=== PATIENT | male | born 1950 | race Caucasian/White ===

== ENCOUNTER 2018-07-22 14:40 | Inpatient (IN) | payer MEDICARE, BC ==
[~2018-07-22] VITALS: Ht 167.6 cm; Wt 56.8 kg
[2018-07-22] MEDS ORDERED: morphine 4 MG/ML VIAL IV STA ×2 (15:25→21:35)
[2018-07-22] MEDS ORDERED: ONDANSETRON 4 MG INJ IV STA (15:25)
[2018-07-22] MEDS ORDERED: SOD CHLORIDE 0.9% 1,000 ML IV STA (15:25)
--- NOTE | 2018-07-22 15:34 | ERD ---
ER Documentation Chief Complaint Chief Complaint AP SEND BY DR PICHARDO HPI 68-year-old male presenting with right-sided abdominal pain that started this morning. He went to his primary care doctor and was sent here for evaluation. He had associated nonbloody and nonbilious vomiting multiple times. The pain is constant, 8 out of 10, aching, nonradiating, with no alleviating or exacerbating factors. He is having normal bowel movements with no hematochezia or melena. Denies fevers or chills. No chest pain or shortness of breath. ROS All systems reviewed and are negative except as per history of present illness. Medications Home Meds Reported Medications Amlodipine Besylate* (Norvasc*) 5 Mg Tablet, 5 MG PO DAILY, TAB 07/22/18 Clopidogrel Bisulfate (Clopidogrel) 75 Mg Tablet, 75 MG PO DAILY, #30 TAB 07/22/18 Metoprolol Succinate* (Toprol XL*) 25 Mg Tab.sr.24h, 25 MG PO DAILY, #30 TAB 07/22/18 Allergies Allergies: Coded Allergies: No Known Allergy (Unverified , 07/22/18) PMhx/Soc History of Surgery: Yes (Left femoral stents) Hx Cardiac Disorders: Yes (Peripheral artery disease, hypertension) Hx Alcohol Use: Yes Hx Substance Use: No Hx Tobacco Use: Yes Smoking Status: Current every day smoker FmHx Family History: No diabetes Physical Exam Vitals Vital Signs Date Temp Pulse Resp B/P (MAP) Pulse Ox O2 O2 Flow FiO2 Time Delivery Rate 07/22/18 98.3 89 18 140/89 99 14:47 (106) Physical Exam Const: No acute distress, nontoxic Head: Atraumatic Eyes: Normal Conjunctiva ENT: Normal External Ears, Nose and Mouth. Neck: Full range of motion. No meningismus. Resp: Clear to auscultation bilaterally Cardio: Regular rate and rhythm, no murmurs. Nonpalpable left femoral, DP, and PT pulses. Unable to get Dopplers on DP and PT pulses. Right lower extremity with no palpable or dopplerable DP or PT pulses. Able to palpate a 2+ femoral pulse. Abd: Soft, right mid abdomen tender to deep palpation with no rebound or guarding. No pulsatile mass. Non distended. Normal bowel sounds Skin: No petechiae or rashes Back: No midline or flank tenderness Ext: No cyanosis, or edema. Feet with decreased cap refill but relatively warm to touch. Neur: Awake and alert, normal speech, no facial asymmetry, strength and sensations intact in all 4 extremities. Psych: Normal Mood and Affect Result Diagram: 07/22/18 1518 07/22/18 1518 Results 24 hrs Laboratory Tests Test 07/22/18 15:18 White Blood Count 15.9 10^3/ul Red Blood Count 5.69 10^6/ul Hemoglobin 17.1 g/dl Hematocrit 50.9 % Mean Corpuscular Volume 89.5 fl Mean Corpuscular Hemoglobin 30.1 pg Mean Corpuscular Hemoglobin Concent 33.6 g/dl Red Cell Distribution Width 13.2 % Platelet Count 228 10^3/UL Mean Platelet Volume 10.3 fl Immature Granulocytes % 0.300 % Neutrophils % 81.9 % Lymphocytes % 12.4 % Monocytes % 4.7 % Eosinophils % 0.2 % Basophils % 0.5 % Nucleated Red Blood Cells % 0.0 /100WBC Immature Granulocytes # 0.050 10^3/ul Neutrophils # 13.0 10^3/ul Lymphocytes # 2.0 10^3/ul Monocytes # 0.7 10^3/ul Eosinophils # 0.0 10^3/ul Basophils # 0.1 10^3/ul Nucleated Red Blood Cells # 0.0 10^3/ul Prothrombin Time 11.8 Sec Prothrombin Time Ratio 0.9 INR International Normalized Ratio 0.86 Activated Partial Thromboplast Time 26.9 Sec Urine Color YELLOW Urine Clarity CLEAR Urine pH 7.0 Urine Specific Henderson 1.015 Urine Ketones NEGATIVE mg/dL Urine Nitrite NEGATIVE mg/dL Urine Bilirubin NEGATIVE mg/dL Urine Urobilinogen NEGATIVE mg/dL Urine Leukocyte Esterase NEGATIVE Gilberto/ul Urine Microscopic RBC 0 /HPF Urine Microscopic WBC 1 /HPF Urine Hemoglobin NEGATIVE mg/dL Urine Glucose NEGATIVE mg/dL Urine Total Protein 1+ mg/dl Sodium Level 142 mmol/L Potassium Level 4.1 mmol/L Chloride Level 100 mmol/L Carbon Dioxide Level 33 mmol/L Anion Gap 9 Blood Urea Nitrogen 14 mg/dl Creatinine 0.86 mg/dl Est Glomerular Filtrat Rate mL/min > 60 mL/min Glucose Level 113 mg/dl Calcium Level 9.7 mg/dl Total Bilirubin 0.4 mg/dl Direct Bilirubin 0.00 mg/dl Indirect Bilirubin 0.4 mg/dl Aspartate Amino Transf (AST/SGOT) 33 IU/L Alanine Aminotransferase (ALT/SGPT) 22 IU/L Alkaline Phosphatase 102 IU/L Troponin I < 0.012 ng/ml Total Protein 8.3 g/dl Albumin 4.8 g/dl Globulin 3.50 g/dl Albumin/Globulin Ratio 1.37 Lipase 109 U/L Current Medications Medications Dose Sig/Mele Start Time Status Last (Trade) Ordered Route PRN Stop Time Admin Dose Reason Admin Sodium 1,000 ml @ Q1H STAT 07/22/18 DC 07/22/18 Chloride 1,000 mls/hr IV 15:25 07/22/18 15:41 16:24 Morphine 4 mg ONCE STAT 07/22/18 DC 07/22/18 Sulfate IV 15:25 07/22/18 15:42 (morphine) 15:27 Ondansetron 4 mg ONCE STAT 07/22/18 DC 07/22/18 HCl (Zofran IV 15:25 07/22/18 15:42 Inj) 15:27 IV Flush 10 ml STK-MED 07/22/18 DC (NS 10 ml) ONCE .ROUTE 16:07 07/22/18 16:08 Sodium 100 ml @ ud STK-MED 07/22/18 DC Chloride ONCE .ROUTE 16:07 07/22/18 16:08 Iohexol 150 ml STK-MED 07/22/18 DC (Omnipaque ONCE .ROUTE 16:07 07/22/18 300mg/ ml) 16:08 Ondansetron 4 mg BRIDGE ORDER 07/22/18 HCl (Zofran PRN IV 18:00 07/23/18 Inj) NAUSEA AND/OR 17:59 VOMITING 650 mg ER BRIDGE 07/22/18 Acetaminophen PRN PO MILD 18:00 07/23/18 (Tylenol PAIN(1-3)OR 17:59 Tab) ELEVATED TEMP Procedures/MDM EMERGENT LABS AND DIAGNOSTIC STUDIES: Lab Results above were reviewed and interpreted by me. CBC: Leukocytosis likely stress response versus infection CMP: No evidence of electrolyte abnormality, renal failure, hypoglycemia, liver failure, or biliary obstruction UA: no evidence of infection or hematuria 12-lead EKG was interpreted by Arpita Justin MD: Normal Sinus Rhythm with ventricular rate of 74 beats per minute Rightward axis Normal intervals Abnormal R wave progression No acute ST or T wave changes suggestive of acute ischemia or STEMI. Radiology Results as interpreted by Radiology below were reviewed by Navdeep Justin MD: Chest x-ray: IMPRESSION: 1. Mild central pulmonary vascular congestion. 2. Blunting of the left costophrenic angle, trace pleural effusion versus scarr ing. RPTAT: BBDD Physician Fred Date Time Electronically viewed and signed by Physician Fred on 07/22/2018 15:36 Ultrasound gallbladder: no acute abnormalities CT abdomen and pelvis with IV contrast: IMPRESSION: 1. Wedge-shaped area of decreased enhancement involving the lower pole of the right kidney is most consistent with a renal infarct probably from embolic phenomenon related to diffuse mural thrombus of the abdominal aorta. 2. Left common iliac through common femoral artery stent placement without enhancement of the stent lumen consistent with occlusion. Follow-up evaluation is recommended. 3. Ectasia of the infrarenal abdominal aorta without aneurysm or rupture, severe to use atherosclerotic calcification is present. 4. Equivocal gastritis pattern. 5. Results discussed by telephone with Dr. Justin at 17:04 Navi Eisenberg Physician Date Time Electronically viewed and signed by Physician Lluvia on 07/22/2018 17:05 Initial Nursing notes reviewed. Previous Medical Records requested via the Electronic Health Record. EMERGENCY DEPARTMENT COURSE / MEDICAL DECISION MAKIN-year-old male presenting with right-sided abdominal pain. Vitals are stable. No evidence of acute surgical abdomen. Imaging showed evidence of a right renal infarction, likely the cause of his pain. This is likely embolic in nature. He does have significant peripheral vascular disease with occlusion of his left lower extremity arterial stent. However there are no signs of critical limb ischemia on exam. Patient states that he has had intermittent pain in his left lower extremity but no numbness or weakness. Currently he denies any pain in his left lower extremity. I spoke with the vascular surgeon, Dr. Jarrell, who does not recommend any anticoagulation at this time. Patient will be admitted for further workup as the renal infarction is concerning for embolism and will require further workup to look for source. I will defer decision for anticoagulation to the inpatient team. Accepting Care Team: Current data and ongoing care discussed. Time: Time of admission Primary Provider: Dr. Pichardo Consulting: Dr. Luis Jarrell (Vascular Sx) Departure Diagnosis: Primary Impression: Kidney infarction Additional Impressions: Lower limb ischemia Stenosis of peripheral vascular stent, initial encounter Condition: Serious ALEXANDREA JUSTIN MD Jul 22, 2018 15:34
[2018-07-22] MEDS ORDERED: SOD CHLORIDE 0.9% 100 ML ONE (16:07)
[2018-07-22] MEDS ORDERED: IOHEXOL 300MG/ML 150 ML BTL ONE (16:07)
[2018-07-22] MEDS ORDERED: METO-335 PO (16:36)
[2018-07-22] MEDS ORDERED: AMLO5TAB4 PO (16:37)
[2018-07-22] MEDS ORDERED: CLOP75TA27 PO (16:37)
[2018-07-22] MEDS ORDERED: ACETAMINOPHEN 325 MG TAB PO PRN (18:00)
[2018-07-22] MEDS ORDERED: ONDANSETRON 4 MG INJ IV PRN (18:00)
[2018-07-22] MEDS ORDERED: LABETALOL HCL 20MG INJ IV ONE ×2 (18:30→20:30)
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
[2018-07-22] MEDS ORDERED: ACETAMINOPHEN 500 MG TAB PO PRN (21:00)
[2018-07-22 22:00] VITALS: BP 198/94; PULSE 64; RESP 20
[2018-07-22 22:12] VITALS: PULSE 62
[2018-07-22 22:17] VITALS: Ht 167.6 cm; Wt 56.8 kg
[2018-07-22] MEDS: ONDANSETRON 4 MG INJ IV SCH (22:43)
[2018-07-22] MEDS: PANTOPRAZOLE 40 MG INJ IV SCH (22:43)
[2018-07-22] MEDS: ALBUTEROL 0.083% (NEB) 2.5 MG/3 ML AMP HHN SCH (22:52)
[2018-07-22] MEDS: IPRATROPIUM (NEB) 0.5 MG/2.5 ML AMP HHN SCH (22:52)
[2018-07-22] MEDS ORDERED: ASPIRIN (EC) 325 MG TAB PO ONE (23:00)
[2018-07-22] MEDS: NICOTINE (14 MG/24 HR) PATCH TRANSDERM SCH (23:37)
[2018-07-22] MEDS: METOPROLOL 25 MG TAB PO SCH (23:38)
[2018-07-23] VITALS (15 sets, daily range): BP systolic 102–202; BP diastolic 52–87; PULSE 63–93; RESP 18–22
[2018-07-23] MEDS: AZITHROMYCIN 500MG/NS (PMX) 250 ML IVPB SCH ×2 (00:21→23:50)
[2018-07-23] MEDS ORDERED: CLONIDINE 0.2 MG/24 HR PATCH TRANSDERM SCH ×2 (00:45→01:00)
[2018-07-23] MEDS ORDERED: LABETALOL HCL 20MG INJ IV PRN (01:00)
[2018-07-23] MEDS ORDERED: NIFEdipine (XL) 60 MG TAB PO SCH (01:35)
[2018-07-23] MEDS ORDERED: ATORVASTATIN 20 MG TAB PO SCH ×2 (01:40→21:00)
[2018-07-23] MEDS ORDERED: NITROGLYCERIN 0.2 MG/HR PATCH TRANSDERM SCH ×2 (01:45→09:00)
[2018-07-23] MEDS: TAMSULOSIN (SR) 0.4 MG CAP PO SCH ×2 (01:50→20:25)
[2018-07-23] MEDS ORDERED: NITROGLYCERIN 2% 1 GM OINT PKT ONE (01:59)
[2018-07-23] MEDS ORDERED: CLONIDINE 0.1 MG/24 HR PATCH TRANSDERM SCH (03:00)
[2018-07-23] MEDS: PANTOPRAZOLE 40 MG INJ IV SCH (06:22)
[2018-07-23] MEDS: NICOTINE (14 MG/24 HR) PATCH TRANSDERM SCH (08:05)
[2018-07-23] MEDS: METOPROLOL 25 MG TAB PO SCH ×2 (08:06→20:25)
[2018-07-23] MEDS: ONDANSETRON 4 MG INJ IV SCH (08:08)
[2018-07-23] MEDS: IPRATROPIUM (NEB) 0.5 MG/2.5 ML AMP HHN SCH (08:28)
[2018-07-23] MEDS: ALBUTEROL 0.083% (NEB) 2.5 MG/3 ML AMP HHN SCH ×2 (08:28→16:00)
--- NOTE | 2018-07-23 08:46 | CONS ---
Date/Time of Note Date/Time of Note DATE: 07/23/18 TIME: 08:41 Assessment/Plan Assessment/Plan Assessment/Plan Consult dictated 1-Infarct of the right kidney with well preserved renal fx and BP control in the setting if severe peripheral vasc dz and abd ASHD of Aorta. Doubt assoc coagulopathy (pt and ptt are nl) but hematology comments would be welcomed, cards eval regarding unlikely mural thrombus as cause should be pursued and vascular eval as to whether abd aorta stenting or other would be helpful to prevent future events. Thank you Result Diagram: 07/23/1818 07/23/1817 Results 24hrs Laboratory Tests Test 07/22/18 15:00 07/22/18 15:18 07/23/18 05:17 07/23/18 05:18 Urine Color YELLOW YELLOW Urine Clarity CLEAR CLEAR Urine pH 6.0 7.0 Urine Specific [place] 1.032 H 1.015 Urine Ketones TRACE A NEGATIVE Urine Nitrite NEGATIVE NEGATIVE Urine Bilirubin NEGATIVE NEGATIVE Urine Urobilinogen NEGATIVE NEGATIVE Urine Leukocyte Esterase NEGATIVE NEGATIVE Urine Hemoglobin NEGATIVE NEGATIVE Urine Glucose NEGATIVE NEGATIVE Urine Total Protein NEGATIVE 1+ H White Blood Count 15.9 H 13.1 H Red Blood Count 5.69 4.82 Hemoglobin 17.1 14.6 Hematocrit 50.9 43.2 Mean Corpuscular Volume 89.5 89.6 Mean Corpuscular 30.1 30.3 Hemoglobin Mean Corpuscular 33.6 33.8 Hemoglobin Concent Red Cell Distribution 13.2 13.3 Width Platelet Count 228 196 Mean Platelet Volume 10.3 10.6 H Immature Granulocytes % 0.300 0.500 H Neutrophils % 81.9 H 78.5 H Lymphocytes % 12.4 L 14.1 L Monocytes % 4.7 6.1 Eosinophils % 0.2 0.3 Basophils % 0.5 0.5 Nucleated Red Blood 0.0 0.0 Cells % Immature Granulocytes # 0.050 H 0.060 H Neutrophils # 13.0 H 10.3 H Lymphocytes # 2.0 1.8 Monocytes # 0.7 0.8 Eosinophils # 0.0 0.0 Basophils # 0.1 0.1 Nucleated Red Blood 0.0 0.0 Cells # Prothrombin Time 11.8 L Prothrombin Time Ratio 0.9 INR International 0.86 Normalized Ratio Activated 26.9 Partial Thromboplast Time Urine Microscopic RBC 0 Urine Microscopic WBC 1 Sodium Level 142 141 Potassium Level 4.1 4.1 Chloride Level 100 100 Carbon Dioxide Level 33 H 32 H Anion Gap 9 9 Blood Urea Nitrogen 14 13 Creatinine 0.86 0.86 Est Glomerular Filtrat > 60 > 60 Rate mL/min Glucose Level 113 112 Calcium Level 9.7 8.9 Total Bilirubin 0.4 0.7 Direct Bilirubin 0.00 0.00 Indirect Bilirubin 0.4 0.7 Aspartate Amino 33 28 Transf (AST/SGOT) Alanine 22 21 Aminotransferase (ALT/SG PT) Alkaline Phosphatase 102 61 Troponin I < 0.012 0.021 Total Protein 8.3 H 6.1 # Albumin 4.8 3.6 # Globulin 3.50 H 2.50 Albumin/Globulin Ratio 1.37 1.44 Lipase 109 Magnesium Level 1.8 Carcinoembryonic Antigen 2.4 Thyroid Stimulating 0.612 Hormone (TSH) Consultation Date/Type/Reason Admit Date/Time July 22, 2018 Past Medical History Medical History: angina, congestive heart failure, coronary artery disease, GERD, high cholesterol, hypertension Medications Current Medications Ondansetron HCl (Zofran Inj) 4 mg BRIDGE ORDER PRN IV NAUSEA AND/OR VOMITING; Start 07/22/18 at 18:00; Stop 07/23/18 at 17:59 Acetaminophen (Tylenol Tab) 650 mg ER BRIDGE PRN PO MILD PAIN(1-3)OR ELEVATED TEMP; Start 07/22/18 at 18:00; Stop 07/23/18 at 17:59 Azithromycin 250 ml @ 250 mls/hr Q24H IVPB Last administered on 07/23/18at 00:21; Admin Dose 250 MLS/HR; Start 07/22/18 at 23:00 Albuterol (Proventil 0.083% (Neb)) 2.5 mg Q8H RESP THERAPY HHN Last administered on 07/22/18at 22:52; Admin Dose 2.5 MG; Start 07/22/18 at 21:20 Ipratropium [place] (Atrovent 0.02% (Neb)) 0.5 mg DAILY RESP THERAPY HHN Last administered on 07/22/18at 22:52; Admin Dose 0.5 MG; Start 07/22/18 at 22:00 Ondansetron HCl (Zofran Inj) 4 mg DAILY IV Last administered on 07/23/18at 08:08; Admin Dose 4 MG; Start 07/22/18 at 23:00 Pantoprazole (Protonix Iv) 40 mg DAILY@0600 IV Last administered on 07/23/18 06:22; Admin Dose 40 MG; Start 07/22/18 at 23:00 Nicotine (Nicoderm 14 Mg/ 24hr) 1 patch DAILY TRANSDERM Last administered on 07/23/18 08:05; Admin Dose 1 PATCH; Start 07/22/18 at 23:00 Acetaminophen (Tylenol Tab) 500 mg Q6H PRN PO PAIN LEVEL 4-6; Start 07/22/18 at 21:00 Metoprolol Tartrate (Lopressor) 25 mg BID PO Last administered on 07/23/18 08:06; Admin Dose 25 MG; Start 07/22/18 at 23:30 Labetalol HCl (Labetalol) 20 mg Q1HWA PRN IV ELEVATED SYSTOLIC BP Last administered on 07/23/18 01:51; Admin Dose 20 MG; Start 07/23/18 at 01:00 Hydralazine HCl (Apresoline) 25 mg TID NGT Last administered on 07/23/18 08:06; Admin Dose 25 MG; Start 07/23/18 at 01:40 Morphine Sulfate (morphine) 3 mg Q3HWA PRN IV SEVERE PAIN LEVEL 7-10; Start 07/23/18 at 01:00 Nifedipine (Procardia Xl) 60 mg BID PO Last administered on 07/23/18 01:50; Admin Dose 60 MG; Start 07/23/18 at 01:35 Atorvastatin Calcium (Lipitor) 20 mg DAILY@2100 PO Last administered on 07/23/18 01:57; Admin Dose 20 MG; Start 07/23/18 at 01:40 Tamsulosin HCl (Flomax) 0.4 mg HS PO Last administered on 07/23/18 01:50; Admin Dose 0.4 MG; Start 07/23/18 at 01:40 Clonidine HCl (Catapres-Tts 1 Patch) 1 patch Q7D TRANSDERM Last administered on 07/23/18at 03:37; Admin Dose 1 PATCH; Start 07/23/18 at 03:00 Nitroglycerin (Nitroglycerin 0.1 Mg/Hr) 1 patch DAILY TRANSDERM ; Start 07/23/18 at 09:00 Allergies: Coded Allergies: No Known Allergy (Unverified , 07/22/18) Social History Alcohol Use: rarely Smoking Status: Current every day smoker Drug Use: none Exam/Review of Systems Vital Signs Vitals Vital Signs Date Temp Pulse Resp B/P (MAP) Pulse Ox O2 O2 Flow FiO2 Time Delivery Rate 07/23/18 97.6 69 120/59 Room Air 07:32 (79) 07/23/18 20 94 04:16 07/23/18 2.0 01:51 Intake and Output 07/22/18 07/22/18 07/23/18 1515:00 23:00 07:00 IntakeIntake Total 300 ml OutputOutput Total 400 ml BalanceBalance -100 ml Medications Medications Current Medications Ondansetron HCl (Zofran Inj) 4 mg BRIDGE ORDER PRN IV NAUSEA AND/OR VOMITING; Start 07/22/18 at 18:00; Stop 07/23/18 at 17:59 Acetaminophen (Tylenol Tab) 650 mg ER BRIDGE PRN PO MILD PAIN(1-3)OR ELEVATED TEMP; Start 07/22/18 at 18:00; Stop 07/23/18 at 17:59 Azithromycin 250 ml @ 250 mls/hr Q24H IVPB Last administered on 07/23/18at 00:21; Admin Dose 250 MLS/HR; Start 07/22/18 at 23:00 Albuterol (Proventil 0.083% (Neb)) 2.5 mg Q8H RESP THERAPY HHN Last administered on 07/22/18at 22:52; Admin Dose 2.5 MG; Start 07/22/18 at 21:20 Ipratropium [place] (Atrovent 0.02% (Neb)) 0.5 mg DAILY RESP THERAPY HHN Last administered on 07/22/18at 22:52; Admin Dose 0.5 MG; Start 07/22/18 at 22:00 Ondansetron HCl (Zofran Inj) 4 mg DAILY IV Last administered on 07/23/18at 08:08; Admin Dose 4 MG; Start 07/22/18 at 23:00 Pantoprazole (Protonix Iv) 40 mg DAILY@0600 IV Last administered on 07/23/18at 06:22; Admin Dose 40 MG; Start 07/22/18 at 23:00 Nicotine (Nicoderm 14 Mg/ 24hr) 1 patch DAILY TRANSDERM Last administered on 07/23/18 08:05; Admin Dose 1 PATCH; Start 07/22/18 at 23:00 Acetaminophen (Tylenol Tab) 500 mg Q6H PRN PO PAIN LEVEL 4-6; Start 07/22/18 at 21:00 Metoprolol Tartrate (Lopressor) 25 mg BID PO Last administered on 07/23/18 08:06; Admin Dose 25 MG; Start 07/22/18 at 23:30 Labetalol HCl (Labetalol) 20 mg Q1HWA PRN IV ELEVATED SYSTOLIC BP Last administered on 07/23/18 01:51; Admin Dose 20 MG; Start 07/23/18 at 01:00 Hydralazine HCl (Apresoline) 25 mg TID NGT Last administered on 07/23/18 08:06; Admin Dose 25 MG; Start 07/23/18 at 01:40 Morphine Sulfate (morphine) 3 mg Q3HWA PRN IV SEVERE PAIN LEVEL 7-10; Start 07/23/18 at 01:00 Nifedipine (Procardia Xl) 60 mg BID PO Last administered on 07/23/18 01:50; Admin Dose 60 MG; Start 07/23/18 at 01:35 Atorvastatin Calcium (Lipitor) 20 mg DAILY@2100 PO Last administered on 07/23/18 01:57; Admin Dose 20 MG; Start 07/23/18 at 01:40 Tamsulosin HCl (Flomax) 0.4 mg HS PO Last administered on 07/23/18 01:50; Admin Dose 0.4 MG; Start 07/23/18 at 01:40 Clonidine HCl (Catapres-Tts 1 Patch) 1 patch Q7D TRANSDERM Last administered on 07/23/18at 03:37; Admin Dose 1 PATCH; Start 07/23/18 at 03:00 Nitroglycerin (Nitroglycerin 0.1 Mg/Hr) 1 patch DAILY TRANSDERM ; Start 07/23/18 at 09:00 TOBIAS LUNA MD Jul 23, 2018 08:46
[2018-07-23] MEDS ORDERED: NIFEdipine (XL) 30 MG TAB PO SCH (09:00)
--- NOTE | 2018-07-23 09:17 | CONS ---
DATE OF ADMISSION: 07/22/2018 DATE OF CONSULTATION: REQUESTING PHYSICIAN: Dr. Rose. Thank you very much for allowing me to evaluate this 68-year-old male admitted via the ER with abdomi nal pain and an injury to his right kidney. HISTORICAL EVENTS: As you well know, this patient presented to [facility] ER with right-man ed abdominal pain yesterday that began the morning prior to admission. It did have some associated v omiting without hematemesis. There was no change in his bowel function and importantly no symptoms o f GI bleeding. The ER physician indicated he had no chest pain or shortness of breath. Presently, he is comfortable with only mild right-sided abdominal pain. No vomiting. MEDICATIONS: At home prior to admission included: 1. Amlodipine 5 mg per day. 2. Plavix 75 mg per day. 3. Metoprolol 25 mg per day. PAST MEDICAL HISTORY: As outlined by Dr. Rose included: 1. Known thrombosis of the abdominal aorta. 2. 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 3. History of chronic obstructive pulmonary disease. 4. Ischemic heart disease. 5. History of peripheral neuropathy. 6. History of hypertension. SOCIAL HISTORY: Will be reviewed with Dr. Rose. I suspect he was a smoker. PHYSICAL EXAMINATION: VITAL SIGNS: BP 120/59, pulse 69, respirations were 18. He was afebrile. EYES: Extraocular muscles were full. NOSE, MOUTH, AND THROAT: Normal. NECK: Supple without jugular venous distention, thyroid enlargement or adenopathy. LUNGS: Decreased breath sounds without rales, wheezes or rhonchi. HEART: Regular, no murmur. ABDOMEN: Liver and spleen not enlarged. No tenderness. No bruit. EXTREMITIES: Marked reduction in pulses. Feet were warm. Right femoral, 2+, left femoral was absen t. NEUROLOGIC: No lateralizing motor weakness. LABORATORY AND DIAGNOSTIC STUDIES: Protime and PTT were normal. On admission, white count 15,900, t his morning 13,100, hematocrit 50.9 on admission, 43.2 this morning. Renal function remains well pre served with normal electrolytes. Albumin was 3.6. Thyroid function was normal. CEA was negative. Troponins were negative. Urinalysis was normal on admission, 1+ protein noted on the second sample y . IMAGING STUDIES: Included a chest x-ray that revealed mild pulmonary congestion. CT abdomen and pel vis with contrast wedge-shaped area of decreased enhancement involving the lower pole of the right ki dney consistent with a renal infarct, left common iliac through common femoral artery stent occluded, severe atherosclerosis of the aorta. IMPRESSION: 1. Infarct of the right kidney with now overall pain and well preserved renal function. 2. Renal function. At this point, I do not believe that any specific intervention except for addres sing his underlying atherosclerotic disease. Uncertain whether a stent placement in the aorta would be of any benefit in preventing further distal embolic disease. Doubt he has an associated coagulopa thy. Hematology comments for completeness would be reasonable, albeit his Protime and PTT were qing l. 3. Blood pressure at this point is well controlled. PLAN: Will discuss the above with you. Dictated By: TOBIAS LUNA MD MR/NTS Conf#: [id number] DID#: [id number] CC: SINGH DUDLEY MD; GISEL ROSE MD;*End*
--- NOTE | 2018-07-23 09:54 | CONS ---
Date/Time of Note Date/Time of Note DATE: 07/23/18 TIME: 09:43 Assessment/Plan Assessment/Plan Hospital Course Right renal infarct: Embolic. 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 Other possibilities include cardioembolic from occult afib (none so far on tele), severe LV dysfunction (unknown EF), endocarditis (no fevers but mild leukocytosis). PAD: had left common iliac stent 2 yrs prior and has progressive claudication a gain but no rest pain. CT shows occlusion of the stents which coincides with his symptoms but no rest pain so doubt acute occlusion. HTN: uncontrolled on admission likely at least partially due to pain and possibly from renal infarct. Now controlled so far this am -f/u vascular surgery eval. ?Need for anticoagulation chronically. ?Risk for renal hemorrhage with anticoagulation -check echo -check blood cultures (did get azithromycin last night) -add ASA for now -increase to lipitor 40mg -continue current BP meds including nifedipine 30mg BID, metoprolol 25mg BID, hydralazine 25mg TID Result Diagram: 07/23/18 0518 07/23/18 0517 Results 24hrs Laboratory Tests Test 07/22/18 15:00 07/22/18 15:18 07/23/18 05:17 07/23/18 05:18 Urine Color YELLOW YELLOW Urine Clarity CLEAR CLEAR Urine pH 6.0 7.0 Urine Specific [place] 1.032 H 1.015 Urine Ketones TRACE A NEGATIVE Urine Nitrite NEGATIVE NEGATIVE Urine Bilirubin NEGATIVE NEGATIVE Urine Urobilinogen NEGATIVE NEGATIVE Urine Leukocyte Esterase NEGATIVE NEGATIVE Urine Hemoglobin NEGATIVE NEGATIVE Urine Glucose NEGATIVE NEGATIVE Urine Total Protein NEGATIVE 1+ H White Blood Count 15.9 H 13.1 H Red Blood Count 5.69 4.82 Hemoglobin 17.1 14.6 Hematocrit 50.9 43.2 Mean Corpuscular Volume 89.5 89.6 Mean Corpuscular 30.1 30.3 Hemoglobin Mean Corpuscular 33.6 33.8 Hemoglobin Concent Red Cell Distribution 13.2 13.3 Width Platelet Count 228 196 Mean Platelet Volume 10.3 10.6 H Immature Granulocytes % 0.300 0.500 H Neutrophils % 81.9 H 78.5 H Lymphocytes % 12.4 L 14.1 L Monocytes % 4.7 6.1 Eosinophils % 0.2 0.3 Basophils % 0.5 0.5 Nucleated Red Blood 0.0 0.0 Cells % Immature Granulocytes # 0.050 H 0.060 H Neutrophils # 13.0 H 10.3 H Lymphocytes # 2.0 1.8 Monocytes # 0.7 0.8 Eosinophils # 0.0 0.0 Basophils # 0.1 0.1 Nucleated Red Blood 0.0 0.0 Cells # Prothrombin Time 11.8 L Prothrombin Time Ratio 0.9 INR International 0.86 Normalized Ratio Activated 26.9 Partial Thromboplast Time Urine Microscopic RBC 0 Urine Microscopic WBC 1 Sodium Level 142 141 Potassium Level 4.1 4.1 Chloride Level 100 100 Carbon Dioxide Level 33 H 32 H Anion Gap 9 9 Blood Urea Nitrogen 14 13 Creatinine 0.86 0.86 Est Glomerular Filtrat > 60 > 60 Rate mL/min Glucose Level 113 112 Calcium Level 9.7 8.9 Total Bilirubin 0.4 0.7 Direct Bilirubin 0.00 0.00 Indirect Bilirubin 0.4 0.7 Aspartate Amino 33 28 Transf (AST/SGOT) Alanine 22 21 Aminotransferase (ALT/SG PT) Alkaline Phosphatase 102 61 Troponin I < 0.012 0.021 Total Protein 8.3 H 6.1 # Albumin 4.8 3.6 # Globulin 3.50 H 2.50 Albumin/Globulin Ratio 1.37 1.44 Lipase 109 Magnesium Level 1.8 Lactate Dehydrogenase 513 Carcinoembryonic Antigen 2.4 Thyroid Stimulating 0.612 Hormone (TSH) Consultation Date/Type/Reason Admit Date/Time July 22, 2018 Date of Consultation: Jul 23, 2018 Type of Consult Cardiology Reason for Consultation embolic renal infarct Requesting Provider: GISEL ROSE MD Hx of Present Illness 68 yo M with a h/o PAD s/p left iliac stent at [facility] 2 yrs prior, HTN, who presented with right abdominal pain. He was found to have right renal infarct, ectatic aorta with mural thrombus, and left common iliac stent occlusion. He states that he was doing well until yesterday am when she started to have severe right abdominal pain. He was also having nausea and vomiting. He does have a right inguinal hernia but the pain was in the mid right abdomen. The pain has since dissipated but is still mildly present. He denies any recent illness or fevers. No h/o afib or arrhythmias. He had a normal cardiac cath ~10 yrs prior. No chest pain or SOB. The pt notes that 2 yrs ago he was having progressive claudication leading to his stents. Since then he has had progressively worsening claudication again but has no pain with normal paced walking. No rest pain or nonhealing wounds. per hPI Past Medical History per hPI Medical History: angina, congestive heart failure, coronary artery disease, GERD, high cholesterol, hypertension Medications Current Medications Ondansetron HCl (Zofran Inj) 4 mg BRIDGE ORDER PRN IV NAUSEA AND/OR VOMITING; Start 07/22/18 at 18:00; Stop 07/23/18 at 17:59 Acetaminophen (Tylenol Tab) 650 mg ER BRIDGE PRN PO MILD PAIN(1-3)OR ELEVATED TEMP; Start 07/22/18 at 18:00; Stop 07/23/18 at 17:59 Azithromycin 250 ml @ 250 mls/hr Q24H IVPB Last administered on 07/23/18at 00:21; Admin Dose 250 MLS/HR; Start 07/22/18 at 23:00 Albuterol (Proventil 0.083% (Neb)) 2.5 mg Q8H RESP THERAPY HHN Last administered on 07/23/18at 08:28; Admin Dose 2.5 MG; Start 07/22/18 at 21:20 Ipratropium [place] (Atrovent 0.02% (Neb)) 0.5 mg DAILY RESP THERAPY HHN Last administered on 07/23/18at 08:28; Admin Dose 0.5 MG; Start 07/22/18 at 22:00 Ondansetron HCl (Zofran Inj) 4 mg DAILY IV Last administered on 07/23/18at 08:08; Admin Dose 4 MG; Start 07/22/18 at 23:00 Pantoprazole (Protonix Iv) 40 mg DAILY@0600 IV Last administered on 07/23/18at 06:22; Admin Dose 40 MG; Start 07/22/18 at 23:00 Nicotine (Nicoderm 14 Mg/ 24hr) 1 patch DAILY TRANSDERM Last administered on 07/23/18at 08:05; Admin Dose 1 PATCH; Start 07/22/18 at 23:00 Acetaminophen (Tylenol Tab) 500 mg Q6H PRN PO PAIN LEVEL 4-6; Start 07/22/18 at 21:00 Metoprolol Tartrate (Lopressor) 25 mg BID PO Last administered on 07/23/18at 08:06; Admin Dose 25 MG; Start 07/22/18 at 23:30 Labetalol HCl (Labetalol) 20 mg Q1HWA PRN IV ELEVATED SYSTOLIC BP Last administered on 07/23/18at 01:51; Admin Dose 20 MG; Start 07/23/18 at 01:00 Hydralazine HCl (Apresoline) 25 mg TID NGT Last administered on 07/23/18at 08:06; Admin Dose 25 MG; Start 07/23/18 at 01:40 Morphine Sulfate (morphine) 3 mg Q3HWA PRN IV SEVERE PAIN LEVEL 7-10; Start 07/23/18 at 01:00 Atorvastatin Calcium (Lipitor) 20 mg DAILY@2100 PO Last administered on 07/23/18at 01:57; Admin Dose 20 MG; Start 07/23/18 at 01:40 Tamsulosin HCl (Flomax) 0.4 mg HS PO Last administered on 07/23/18at 01:50; Admin Dose 0.4 MG; Start 07/23/18 at 01:40 Clonidine HCl (Catapres-Tts 1 Patch) 1 patch Q7D TRANSDERM Last administered on 07/23/18at 03:37; Admin Dose 1 PATCH; Start 07/23/18 at 03:00 Nitroglycerin (Nitroglycerin 0.1 Mg/Hr) 1 patch DAILY TRANSDERM ; Start 07/23/18 at 09:00 Nifedipine (Procardia Xl) 30 mg BID PO ; Start 07/23/18 at 09:00; Status UNV Allergies: Coded Allergies: No Known Allergy (Unverified , 07/22/18) Social History Alcohol Use: rarely Smoking Status: Current every day smoker Drug Use: none Exam/Review of Systems Vital Signs Vitals Vital Signs Date Temp Pulse Resp B/P (MAP) Pulse Ox O2 O2 Flow FiO2 Time Delivery Rate 07/23/18 2.0 08:28 07/23/18 68 18 93 Nasal 08:28 Cannula 07/23/18 97.6 120/59 07:32 (79) Intake and Output 07/22/18 07/22/18 07/23/18 1515:00 23:00 07:00 IntakeIntake Total 300 ml OutputOutput Total 400 ml BalanceBalance -100 ml Exam Constitutional: alert, oriented Psych: no complaints, nl mood/affect Head: normocephalic, atraumatic Neck: supple; No jvd Respiratory: clear to auscultation, diminished breath sounds; No crackles/rales Cardiovascular: regular rate and rhythm; No edema, No systolic murmur Gastrointestinal: soft, non-tender; No distended Extremities: No normal pulses (nonpalpable right femoral, PT/DP) Neurological: nl mental status, nl speech Medications Medications Current Medications Ondansetron HCl (Zofran Inj) 4 mg BRIDGE ORDER PRN IV NAUSEA AND/OR VOMITING; Start 07/22/18 at 18:00; Stop 07/23/18 at 17:59 Acetaminophen (Tylenol Tab) 650 mg ER BRIDGE PRN PO MILD PAIN(1-3)OR ELEVATED TEMP; Start 07/22/18 at 18:00; Stop 07/23/18 at 17:59 Azithromycin 250 ml @ 250 mls/hr Q24H IVPB Last administered on 07/23/18at 00:21; Admin Dose 250 MLS/HR; Start 07/22/18 at 23:00 Albuterol (Proventil 0.083% (Neb)) 2.5 mg Q8H RESP THERAPY HHN Last administered on 07/23/18 08:28; Admin Dose 2.5 MG; Start 07/22/18 at 21:20 Ipratropium [place] (Atrovent 0.02% (Neb)) 0.5 mg DAILY RESP THERAPY HHN Last administered on 07/23/18at 08:28; Admin Dose 0.5 MG; Start 07/22/18 at 22:00 Ondansetron HCl (Zofran Inj) 4 mg DAILY IV Last administered on 07/23/18at 08:08; Admin Dose 4 MG; Start 07/22/18 at 23:00 Pantoprazole (Protonix Iv) 40 mg DAILY@0600 IV Last administered on 07/23/18at 06:22; Admin Dose 40 MG; Start 07/22/18 at 23:00 Nicotine (Nicoderm 14 Mg/ 24hr) 1 patch DAILY TRANSDERM Last administered on 07/23/18at 08:05; Admin Dose 1 PATCH; Start 07/22/18 at 23:00 Acetaminophen (Tylenol Tab) 500 mg Q6H PRN PO PAIN LEVEL 4-6; Start 07/22/18 at 21:00 Metoprolol Tartrate (Lopressor) 25 mg BID PO Last administered on 07/23/18 08:06; Admin Dose 25 MG; Start 07/22/18 at 23:30 Labetalol HCl (Labetalol) 20 mg Q1HWA PRN IV ELEVATED SYSTOLIC BP Last administered on 07/23/18at 01:51; Admin Dose 20 MG; Start 07/23/18 at 01:00 Hydralazine HCl (Apresoline) 25 mg TID NGT Last administered on 07/23/18at 08:06; Admin Dose 25 MG; Start 07/23/18 at 01:40 Morphine Sulfate (morphine) 3 mg Q3HWA PRN IV SEVERE PAIN LEVEL 7-10; Start 07/23/18 at 01:00 Atorvastatin Calcium (Lipitor) 20 mg DAILY@2100 PO Last administered on 07/23/18at 01:57; Admin Dose 20 MG; Start 07/23/18 at 01:40 Tamsulosin HCl (Flomax) 0.4 mg HS PO Last administered on 07/23/18at 01:50; Admin Dose 0.4 MG; Start 07/23/18 at 01:40 Clonidine HCl (Catapres-Tts 1 Patch) 1 patch Q7D TRANSDERM Last administered on 07/23/18at 03:37; Admin Dose 1 PATCH; Start 07/23/18 at 03:00 Nitroglycerin (Nitroglycerin 0.1 Mg/Hr) 1 patch DAILY TRANSDERM ; Start 07/23/18 at 09:00 Nifedipine (Procardia Xl) 30 mg BID PO ; Start 07/23/18 at 09:00; Status YANELIS HALEY Jul 23, 2018 09:54
--- NOTE | 2018-07-23 10:42 | CONS ---
Date/Time of Note Date/Time of Note DATE: 07/23/18 TIME: 10:39 Assessment/Plan Assessment/Plan Assessment/Plan Chest x-ray showing emphysematous changes without any acute infiltrates. Assessment and recommendations; 1. Patient with history of emphysema admitted for abdominal pain due to right renal infarct. Clinically much improved. 2. Other comorbidities include history of BPH and hypertension. 3. From a pulmonary perspective, patient is a symptomatic. Continue current supportive care. Further recommendations per urologist. Result Diagram: 07/23/18 0518 07/23/18 0517 Results 24hrs Laboratory Tests Test 07/22/18 15:00 07/22/18 15:18 07/23/18 05:17 07/23/18 05:18 Urine Color YELLOW YELLOW Urine Clarity CLEAR CLEAR Urine pH 6.0 7.0 Urine Specific [place] 1.032 H 1.015 Urine Ketones TRACE A NEGATIVE Urine Nitrite NEGATIVE NEGATIVE Urine Bilirubin NEGATIVE NEGATIVE Urine Urobilinogen NEGATIVE NEGATIVE Urine Leukocyte Esterase NEGATIVE NEGATIVE Urine Hemoglobin NEGATIVE NEGATIVE Urine Glucose NEGATIVE NEGATIVE Urine Total Protein NEGATIVE 1+ H White Blood Count 15.9 H 13.1 H Red Blood Count 5.69 4.82 Hemoglobin 17.1 14.6 Hematocrit 50.9 43.2 Mean Corpuscular Volume 89.5 89.6 Mean Corpuscular 30.1 30.3 Hemoglobin Mean Corpuscular 33.6 33.8 Hemoglobin Concent Red Cell Distribution 13.2 13.3 Width Platelet Count 228 196 Mean Platelet Volume 10.3 10.6 H Immature Granulocytes % 0.300 0.500 H Neutrophils % 81.9 H 78.5 H Lymphocytes % 12.4 L 14.1 L Monocytes % 4.7 6.1 Eosinophils % 0.2 0.3 Basophils % 0.5 0.5 Nucleated Red Blood 0.0 0.0 Cells % Immature Granulocytes # 0.050 H 0.060 H Neutrophils # 13.0 H 10.3 H Lymphocytes # 2.0 1.8 Monocytes # 0.7 0.8 Eosinophils # 0.0 0.0 Basophils # 0.1 0.1 Nucleated Red Blood 0.0 0.0 Cells # Prothrombin Time 11.8 L Prothrombin Time Ratio 0.9 INR International 0.86 Normalized Ratio Activated 26.9 Partial Thromboplast Time Urine Microscopic RBC 0 Urine Microscopic WBC 1 Sodium Level 142 141 Potassium Level 4.1 4.1 Chloride Level 100 100 Carbon Dioxide Level 33 H 32 H Anion Gap 9 9 Blood Urea Nitrogen 14 13 Creatinine 0.86 0.86 Est Glomerular Filtrat > 60 > 60 Rate mL/min Glucose Level 113 112 Calcium Level 9.7 8.9 Total Bilirubin 0.4 0.7 Direct Bilirubin 0.00 0.00 Indirect Bilirubin 0.4 0.7 Aspartate Amino 33 28 Transf (AST/SGOT) Alanine 22 21 Aminotransferase (ALT/SG PT) Alkaline Phosphatase 102 61 Troponin I < 0.012 0.021 Total Protein 8.3 H 6.1 # Albumin 4.8 3.6 # Globulin 3.50 H 2.50 Albumin/Globulin Ratio 1.37 1.44 Lipase 109 Magnesium Level 1.8 Lactate Dehydrogenase 513 Carcinoembryonic Antigen 2.4 Thyroid Stimulating 0.612 Hormone (TSH) Consultation Date/Type/Reason Admit Date/Time July 22, 2018 Date of Consultation: Jul 23, 2018 Type of Consult Pulmonary History of presenting illness; Patient is a pleasant 68-year-old male who came into the hospital with complaints of right flank pain. Upon evaluation further workup was done which revealed right renal infarct. Patient is feeling much better now and denies any further abdominal pain, he also denies any shortness of breath. Patient did have an episode earlier associated with abdominal pain with interval resolution. He denies any wheezing, chest pain, sputum production, fever or chills. By the time I saw him, patient was laying comfortably in bed. Past medical history; 1. COPD. 2. BPH. 3. Hypertension. 4. Possibly peripheral vascular disease. Medications; reviewed. Allergies; none. Social history; patient quit smoking several years ago. Occupational history; patient has a miscellaneous occupations. Family history; positive for diabetes and hypertension. Review of systems; denies any headache, seizures, sinus symptoms. Denies any chest pain, wheezing, shortness of breath. Any coughing or sputum production. Any further abdominal pain. Denies any nausea vomiting. Denies any edema, orthopnea. Any weight loss. Denies any urinary symptoms. Any melena or hematochezia. General exam; elderly male, awake alert, currently in no distress. Past Medical History Medical History: angina, congestive heart failure, coronary artery disease, GERD, high cholesterol, hypertension Medications Current Medications Ondansetron HCl (Zofran Inj) 4 mg BRIDGE ORDER PRN IV NAUSEA AND/OR VOMITING; Start 07/22/18 at 18:00; Stop 07/23/18 at 17:59 Acetaminophen (Tylenol Tab) 650 mg ER BRIDGE PRN PO MILD PAIN(1-3)OR ELEVATED TEMP; Start 07/22/18 at 18:00; Stop 07/23/18 at 17:59 Azithromycin 250 ml @ 250 mls/hr Q24H IVPB Last administered on 07/23/18 00:21; Admin Dose 250 MLS/HR; Start 07/22/18 at 23:00 Albuterol (Proventil 0.083% (Neb)) 2.5 mg Q8H RESP THERAPY HHN Last administered on 07/23/18 08:28; Admin Dose 2.5 MG; Start 07/22/18 at 21:20 Ipratropium [place] (Atrovent 0.02% (Neb)) 0.5 mg DAILY RESP THERAPY HHN Last administered on 07/23/18 08:28; Admin Dose 0.5 MG; Start 07/22/18 at 22:00 Ondansetron HCl (Zofran Inj) 4 mg DAILY IV Last administered on 07/23/18 08:08; Admin Dose 4 MG; Start 07/22/18 at 23:00 Pantoprazole (Protonix Iv) 40 mg DAILY@0600 IV Last administered on 07/23/18 06:22; Admin Dose 40 MG; Start 07/22/18 at 23:00 Nicotine (Nicoderm 14 Mg/ 24hr) 1 patch DAILY TRANSDERM Last administered on 07/23/18 08:05; Admin Dose 1 PATCH; Start 07/22/18 at 23:00 Acetaminophen (Tylenol Tab) 500 mg Q6H PRN PO PAIN LEVEL 4-6; Start 07/22/18 at 21:00 Metoprolol Tartrate (Lopressor) 25 mg BID PO Last administered on 07/23/18 08:06; Admin Dose 25 MG; Start 07/22/18 at 23:30 Labetalol HCl (Labetalol) 20 mg Q1HWA PRN IV ELEVATED SYSTOLIC BP Last administered on 07/23/18 01:51; Admin Dose 20 MG; Start 07/23/18 at 01:00 Hydralazine HCl (Apresoline) 25 mg TID NGT Last administered on 1/3/19at 08:06; Admin Dose 25 MG; Start 07/23/18 at 01:40 Morphine Sulfate (morphine) 3 mg Q3HWA PRN IV SEVERE PAIN LEVEL 7-10; Start 07/23/18 at 01:00 Tamsulosin HCl (Flomax) 0.4 mg HS PO Last administered on 07/23/18at 01:50; Admin Dose 0.4 MG; Start 07/23/18 at 01:40 Clonidine HCl (Catapres-Tts 1 Patch) 1 patch Q7D TRANSDERM Last administered on 07/23/18at 03:37; Admin Dose 1 PATCH; Start 07/23/18 at 03:00 Nitroglycerin (Nitroglycerin 0.1 Mg/Hr) 1 patch DAILY TRANSDERM ; Start 07/23/18 at 09:00 Nifedipine (Procardia Xl) 30 mg BID PO ; Start 07/23/18 at 09:00 Atorvastatin Calcium (Lipitor) 40 mg DAILY@2100 PO ; Start 07/23/18 at 21:00 Aspirin (Aspirin) 81 mg DAILY PO ; Start 07/24/18 at 09:00 Allergies: Coded Allergies: No Known Allergy (Unverified , 07/22/18) Social History Alcohol Use: rarely Smoking Status: Current every day smoker Drug Use: none Exam/Review of Systems Vital Signs Vitals Vital Signs Date Temp Pulse Resp B/P (MAP) Pulse Ox O2 O2 Flow FiO2 Time Delivery Rate 07/23/18 2.0 08:28 07/23/18 68 18 93 Nasal 08:28 Cannula 07/23/18 97.6 120/59 07:32 (79) Intake and Output 07/22/18 07/22/18 07/23/18 1515:00 23:00 07:00 IntakeIntake Total 300 ml OutputOutput Total 400 ml BalanceBalance -100 ml Exam HEENT exam; supple neck, no JVD. No lymphadenopathy. Midline trachea. No thyromegaly. Patient is edentulous and wears dentures. No neck masses. Chest exam; diminished but clear breath sounds. S1-S2 audible, no murmurs. Regular rhythm. Abdomen exam; soft, no organomegaly. Bowel sounds audible. Nontender. Extremity exam; no peripheral edema or clubbing. SUPERVISOR ANODIZING exam; no focal deficit. Medications Medications Current Medications Ondansetron HCl (Zofran Inj) 4 mg BRIDGE ORDER PRN IV NAUSEA AND/OR VOMITING; Start 07/22/18 at 18:00; Stop 07/23/18 at 17:59 Acetaminophen (Tylenol Tab) 650 mg ER BRIDGE PRN PO MILD PAIN(1-3)OR ELEVATED TEMP; Start 07/22/18 at 18:00; Stop 07/23/18 at 17:59 Azithromycin 250 ml @ 250 mls/hr Q24H IVPB Last administered on 07/23/18at 00:21; Admin Dose 250 MLS/HR; Start 07/22/18 at 23:00 Albuterol (Proventil 0.083% (Neb)) 2.5 mg Q8H RESP THERAPY HHN Last administered on 07/23/18 08:28; Admin Dose 2.5 MG; Start 07/22/18 at 21:20 Ipratropium [place] (Atrovent 0.02% (Neb)) 0.5 mg DAILY RESP THERAPY HHN Last administered on 07/23/18 08:28; Admin Dose 0.5 MG; Start 07/22/18 at 22:00 Ondansetron HCl (Zofran Inj) 4 mg DAILY IV Last administered on 07/23/18 08:08; Admin Dose 4 MG; Start 07/22/18 at 23:00 Pantoprazole (Protonix Iv) 40 mg DAILY@0600 IV Last administered on 07/23/18 06:22; Admin Dose 40 MG; Start 07/22/18 at 23:00 Nicotine (Nicoderm 14 Mg/ 24hr) 1 patch DAILY TRANSDERM Last administered on 07/23/18 08:05; Admin Dose 1 PATCH; Start 07/22/18 at 23:00 Acetaminophen (Tylenol Tab) 500 mg Q6H PRN PO PAIN LEVEL 4-6; Start 07/22/18 at 21:00 Metoprolol Tartrate (Lopressor) 25 mg BID PO Last administered on 07/23/18 08:06; Admin Dose 25 MG; Start 07/22/18 at 23:30 Labetalol HCl (Labetalol) 20 mg Q1HWA PRN IV ELEVATED SYSTOLIC BP Last administered on 07/23/18at 01:51; Admin Dose 20 MG; Start 07/23/18 at 01:00 Hydralazine HCl (Apresoline) 25 mg TID NGT Last administered on 07/23/18at 08:06; Admin Dose 25 MG; Start 07/23/18 at 01:40 Morphine Sulfate (morphine) 3 mg Q3HWA PRN IV SEVERE PAIN LEVEL 7-10; Start 07/23/18 at 01:00 Tamsulosin HCl (Flomax) 0.4 mg HS PO Last administered on 07/23/18at 01:50; Admin Dose 0.4 MG; Start 07/23/18 at 01:40 Clonidine HCl (Catapres-Tts 1 Patch) 1 patch Q7D TRANSDERM Last administered on 07/23/18at 03:37; Admin Dose 1 PATCH; Start 07/23/18 at 03:00 Nitroglycerin (Nitroglycerin 0.1 Mg/Hr) 1 patch DAILY TRANSDERM ; Start 07/23/18 at 09:00 Nifedipine (Procardia Xl) 30 mg BID PO ; Start 07/23/18 at 09:00 Atorvastatin Calcium (Lipitor) 40 mg DAILY@2100 PO ; Start 07/23/18 at 21:00 Aspirin (Aspirin) 81 mg DAILY PO ; Start 07/24/18 at 09:00 JODY COLÓN Jul 23, 2018 10:42
[2018-07-23] MEDS: NITROGLYCERIN 0.1 MG/HR PATCH TRANSDERM SCH (10:54)
[2018-07-23] MEDS: NIFEdipine (XL) 60 MG TAB PO SCH ×2 (10:54→20:24)
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
[2018-07-23] MEDS: morphine 4 MG/ML VIAL IV PRN (14:14)
--- NOTE | 2018-07-23 15:25 | CONS ---
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 I doubt that he has a thrombophilic state but will send some studies. In the short run, I would not expect that this will make any difference in his treatment, however. Result Diagram: 07/23/18 0518 07/23/18 0517 Results 24hrs Laboratory Tests Test 07/22/18 15:18 07/23/18 05:17 07/23/18 05:18 White Blood Count 15.9 H 13.1 H Red Blood Count 5.69 4.82 Hemoglobin 17.1 14.6 Hematocrit 50.9 43.2 Mean Corpuscular Volume 89.5 89.6 Mean Corpuscular Hemoglobin 30.1 30.3 Mean Corpuscular Hemoglobin Concent 33.6 33.8 Red Cell Distribution Width 13.2 13.3 Platelet Count 228 196 Mean Platelet Volume 10.3 10.6 H Immature Granulocytes % 0.300 0.500 H Neutrophils % 81.9 H 78.5 H Lymphocytes % 12.4 L 14.1 L Monocytes % 4.7 6.1 Eosinophils % 0.2 0.3 Basophils % 0.5 0.5 Nucleated Red Blood Cells % 0.0 0.0 Immature Granulocytes # 0.050 H 0.060 H Neutrophils # 13.0 H 10.3 H Lymphocytes # 2.0 1.8 Monocytes # 0.7 0.8 Eosinophils # 0.0 0.0 Basophils # 0.1 0.1 Nucleated Red Blood Cells # 0.0 0.0 Prothrombin Time 11.8 L Prothrombin Time Ratio 0.9 INR International Normalized Ratio 0.86 Activated Partial Thromboplast Time 26.9 Urine Color YELLOW Urine Clarity CLEAR Urine pH 7.0 Urine Specific [place] 1.015 Urine Ketones NEGATIVE Urine Nitrite NEGATIVE Urine Bilirubin NEGATIVE Urine Urobilinogen NEGATIVE Urine Leukocyte Esterase NEGATIVE Urine Microscopic RBC 0 Urine Microscopic WBC 1 Urine Hemoglobin NEGATIVE Urine Glucose NEGATIVE Urine Total Protein 1+ H Sodium Level 142 141 Potassium Level 4.1 4.1 Chloride Level 100 100 Carbon Dioxide Level 33 H 32 H Anion Gap 9 9 Blood Urea Nitrogen 14 13 Creatinine 0.86 0.86 Est Glomerular Filtrat Rate mL/min > 60 > 60 Glucose Level 113 112 Calcium Level 9.7 8.9 Total Bilirubin 0.4 0.7 Direct Bilirubin 0.00 0.00 Indirect Bilirubin 0.4 0.7 Aspartate Amino Transf (AST/SGOT) 33 28 Alanine Aminotransferase (ALT/SGPT) 22 21 Alkaline Phosphatase 102 61 Troponin I < 0.012 0.021 Total Protein 8.3 H 6.1 # Albumin 4.8 3.6 # Globulin 3.50 H 2.50 Albumin/Globulin Ratio 1.37 1.44 Lipase 109 Magnesium Level 1.8 Lactate Dehydrogenase 513 Carcinoembryonic Antigen 2.4 Thyroid Stimulating Hormone (TSH) 0.612 Consultation Date/Type/Reason Admit Date/Time July 22, 2018 Date of Consultation: Jul 23, 2018 Type of Consult Hematology Reason for Consultation renal infarction Requesting Provider: GISEL ROSE MD Hx of Present Illness 68 yo man with admission due to right renal infarction. His past history is well summarized in Dr. Rose's note. In brief, he has diffuse vascular disease, including coronary vessels, carotic vessels and diffuse peripheral vascular disease with previous stents. He is also a prison heavy smoker. The referral is for possible hyper-coaguable state. Past Medical History Medical History: angina, congestive heart failure, coronary artery disease, GERD, high cholesterol, hypertension Medications Current Medications Ondansetron HCl (Zofran Inj) 4 mg BRIDGE ORDER PRN IV NAUSEA AND/OR VOMITING; Start 07/22/18 at 18:00; Stop 07/23/18 at 17:59 Acetaminophen (Tylenol Tab) 650 mg ER BRIDGE PRN PO MILD PAIN(1-3)OR ELEVATED TEMP; Start 07/22/18 at 18:00; Stop 07/23/18 at 17:59 Azithromycin 250 ml @ 250 mls/hr Q24H IVPB Last administered on 07/23/18at 00:21; Admin Dose 250 MLS/HR; Start 07/22/18 at 23:00 Albuterol (Proventil 0.083% (Neb)) 2.5 mg Q8H RESP THERAPY HHN Last administered on 07/23/18at 08:28; Admin Dose 2.5 MG; Start 07/22/18 at 21:20 Ipratropium [place] (Atrovent 0.02% (Neb)) 0.5 mg DAILY RESP THERAPY HHN Last administered on 07/23/18at 08:28; Admin Dose 0.5 MG; Start 07/22/18 at 22:00 Ondansetron HCl (Zofran Inj) 4 mg DAILY IV Last administered on 07/23/18 08:08; Admin Dose 4 MG; Start 07/22/18 at 23:00 Pantoprazole (Protonix Iv) 40 mg DAILY@0600 IV Last administered on 07/23/18 06:22; Admin Dose 40 MG; Start 07/22/18 at 23:00 Nicotine (Nicoderm 14 Mg/ 24hr) 1 patch DAILY TRANSDERM Last administered on 07/23/18 08:05; Admin Dose 1 PATCH; Start 07/22/18 at 23:00 Acetaminophen (Tylenol Tab) 500 mg Q6H PRN PO PAIN LEVEL 4-6; Start 07/22/18 at 21:00 Metoprolol Tartrate (Lopressor) 25 mg BID PO Last administered on 07/23/18 08:06; Admin Dose 25 MG; Start 07/22/18 at 23:30 Labetalol HCl (Labetalol) 20 mg Q1HWA PRN IV ELEVATED SYSTOLIC BP Last administered on 07/23/18 01:51; Admin Dose 20 MG; Start 07/23/18 at 01:00 Hydralazine HCl (Apresoline) 25 mg TID NGT Last administered on 07/23/18 12:57; Admin Dose 25 MG; Start 07/23/18 at 01:40 Morphine Sulfate (morphine) 3 mg Q3HWA PRN IV SEVERE PAIN LEVEL 7-10 Last administered on 07/23/18 14:14; Admin Dose 3 MG; Start 07/23/18 at 01:00 Tamsulosin HCl (Flomax) 0.4 mg HS PO Last administered on 07/23/18 01:50; Admin Dose 0.4 MG; Start 07/23/18 at 01:40 Clonidine HCl (Catapres-Tts 1 Patch) 1 patch Q7D TRANSDERM Last administered on 07/23/18 03:37; Admin Dose 1 PATCH; Start 07/23/18 at 03:00 Nitroglycerin (Nitroglycerin 0.1 Mg/Hr) 1 patch DAILY TRANSDERM Last administered on 07/23/18 10:54; Admin Dose 1 PATCH; Start 07/23/18 at 09:00 Nifedipine (Procardia Xl) 30 mg BID PO Last administered on 07/23/18at 10:54; Admin Dose 30 MG; Start 07/23/18 at 09:00 Atorvastatin Calcium (Lipitor) 40 mg DAILY@2100 PO ; Start 07/23/18 at 21:00 Aspirin (Aspirin) 81 mg DAILY PO ; Start 07/24/18 at 09:00 Allergies: Coded Allergies: No Known Allergy (Unverified , 07/22/18) Social History Alcohol Use: rarely Smoking Status: Current every day smoker Drug Use: none Exam/Review of Systems Vital Signs Vitals Vital Signs Date Temp Pulse Resp B/P (MAP) Pulse Ox O2 O2 Flow FiO2 Time Delivery Rate 07/23/18 71 12:01 07/23/18 98.0 20 128/60 95 Room Air 12:00 (82) 07/23/18 2.0 08:28 Intake and Output 07/22/18 07/22/18 07/23/18 1515:00 23:00 07:00 IntakeIntake Total 300 ml OutputOutput Total 400 ml BalanceBalance -100 ml Exam Constitutional: alert Head: normocephalic Eyes: nl conjunctiva ENMT: nl external ears & nose Respiratory: clear to auscultation Cardiovascular: regular rate and rhythm Gastrointestinal: soft, non-tender Skin: nl turgor Lymph: nl lymph nodes Medications Medications Current Medications Ondansetron HCl (Zofran Inj) 4 mg BRIDGE ORDER PRN IV NAUSEA AND/OR VOMITING; Start 07/22/18 at 18:00; Stop 07/23/18 at 17:59 Acetaminophen (Tylenol Tab) 650 mg ER BRIDGE PRN PO MILD PAIN(1-3)OR ELEVATED TEMP; Start 07/22/18 at 18:00; Stop 07/23/18 at 17:59 Azithromycin 250 ml @ 250 mls/hr Q24H IVPB Last administered on 07/23/18at 00:21; Admin Dose 250 MLS/HR; Start 07/22/18 at 23:00 Albuterol (Proventil 0.083% (Neb)) 2.5 mg Q8H RESP THERAPY HHN Last administered on 07/23/18at 08:28; Admin Dose 2.5 MG; Start 07/22/18 at 21:20 Ipratropium [place] (Atrovent 0.02% (Neb)) 0.5 mg DAILY RESP THERAPY HHN Last administered on 07/23/18 08:28; Admin Dose 0.5 MG; Start 07/22/18 at 22:00 Ondansetron HCl (Zofran Inj) 4 mg DAILY IV Last administered on 07/23/18 08:08; Admin Dose 4 MG; Start 07/22/18 at 23:00 Pantoprazole (Protonix Iv) 40 mg DAILY@0600 IV Last administered on 07/23/18 06:22; Admin Dose 40 MG; Start 07/22/18 at 23:00 Nicotine (Nicoderm 14 Mg/ 24hr) 1 patch DAILY TRANSDERM Last administered on 07/23/18 08:05; Admin Dose 1 PATCH; Start 07/22/18 at 23:00 Acetaminophen (Tylenol Tab) 500 mg Q6H PRN PO PAIN LEVEL 4-6; Start 07/22/18 at 21:00 Metoprolol Tartrate (Lopressor) 25 mg BID PO Last administered on 07/23/18 08:06; Admin Dose 25 MG; Start 07/22/18 at 23:30 Labetalol HCl (Labetalol) 20 mg Q1HWA PRN IV ELEVATED SYSTOLIC BP Last administered on 07/23/18 01:51; Admin Dose 20 MG; Start 07/23/18 at 01:00 Hydralazine HCl (Apresoline) 25 mg TID NGT Last administered on 07/23/18 12:57; Admin Dose 25 MG; Start 07/23/18 at 01:40 Morphine Sulfate (morphine) 3 mg Q3HWA PRN IV SEVERE PAIN LEVEL 7-10 Last administered on 07/23/18 14:14; Admin Dose 3 MG; Start 07/23/18 at 01:00 Tamsulosin HCl (Flomax) 0.4 mg HS PO Last administered on 07/23/18 01:50; Admin Dose 0.4 MG; Start 07/23/18 at 01:40 Clonidine HCl (Catapres-Tts 1 Patch) 1 patch Q7D TRANSDERM Last administered on 07/23/18 03:37; Admin Dose 1 PATCH; Start 07/23/18 at 03:00 Nitroglycerin (Nitroglycerin 0.1 Mg/Hr) 1 patch DAILY TRANSDERM Last administered on 1/3/19at 10:54; Admin Dose 1 PATCH; Start 07/23/18 at 09:00 Nifedipine (Procardia Xl) 30 mg BID PO Last administered on 07/23/18at 10:54; Admin Dose 30 MG; Start 07/23/18 at 09:00 Atorvastatin Calcium (Lipitor) 40 mg DAILY@2100 PO ; Start 07/23/18 at 21:00 Aspirin (Aspirin) 81 mg DAILY PO ; Start 07/24/18 at 09:00 TOBIAS WILCOX MD Jul 23, 2018 15:25
--- NOTE | 2018-07-23 19:53 | RADRPT ---
Echocardiogram Report Patient Name: LEIDY TOMLIN Gender: Male Date: 1950 Study Date: 23-Jul-2018 [facility] Drum Sander: [facility] Location: [address] Ref. Physician: YANELIS MILLS Quality: Technically Difficult Study Procedures: Transthoracic echocardiogram with complete 2D, M-Mode, and doppler examination. Indications: Evaluate for thrombus, clot, vegetation, etc. 2D/M Mode Doppler Measurement Value Normal Ranges Measurement Value Normal Ranges LVIDd 2D 4.0 3.5 - 5.6 cm AV Peak Tito 1.2 m/sec LVIDs 2D 2.6 2.1 - 4.1 cm AV Peak PG 5.0 mmHg LVPWd 2D 1.2 0.6 - 1.1 cm LVOT Peak Tito 0.8 m/sec IVSd 2D 1.3 0.6 - 1.1 cm LVOT Peak PG 2.0 mmHg AoR Diam 2D 3.2 2.0 - 3.7 cm MV E Peak Tito 0.6 m/sec LA/Ao 2D 1 0 - 1 MV A Peak Tito 0.8 m/sec LA Dimen 2D 3.0 2.3 - 4.0 cm MV E/A 0.8 MV Decel Time 165 msec Lat E` Tito 0.1 m/sec Lateral E/E` 10.2 Med E` Tito 0.1 m/sec MV E/A 0.8 TR Peak Tito 3.6 m/sec TR Peak PG 51.0 mmHg RVSP 54.0 mmHg Findings Left Ventricle: Normal left ventricular systolic function. Normal left ventricular cavity size. Mild concentric left ventricular hypertrophy. Ejection fraction is visually estimated at 65 %. Tissue Doppler/Mitral Doppler indices are consistent with impaired relaxation (Stage I diastolic dysfunction). Right Ventricle: Normal right ventricular size. Normal right ventricular systolic function. Left Atrium: There is mild enlargement of left atrium. Right Atrium: The right atrium is normal in size. Mitral Valve: Normal appearance of the mitral valve. Trace mitral regurgitation. Aortic Valve: Normal appearance of the aortic valve. No significant aortic stenosis or insufficiency. Tricuspid Valve: Normal appearance of the tricuspid valve. Estimated peak PA systolic pressure 54 mmHg. There is mild to moderate tricuspid regurgitation. Pericardium: Normal pericardium with no significant pericardial effusion. Aorta: Normal aortic root. IVC: Normal size and normal respiratory collapse consistent with normal right atrial pressure. Conclusions Normal left ventricular systolic function. Normal left ventricular cavity size. Mild concentric left ventricular hypertrophy. Ejection fraction is visually estimated at 65 %. Tissue Doppler/Mitral Doppler indices are consistent with impaired relaxation (Stage I diastolic dysfunction). Mild to moderate tricuspid regurgitation. No endocarditis. Estimated peak PA systolic pressure 54 mmHg based on RA pressure of 3 mmHg. Electronically Signed By: Yanelis Mills 23-Jul-2018 19:52:27 -0800 Patient Name: LEIDY TOMLIN Study Date: 23-Jul-2018 [id number]
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
[2018-07-23] MEDS: ATORVASTATIN 40 MG TAB PO SCH (20:24)
[2018-07-23] MEDS ORDERED: TAMSULOSIN (SR) 0.4 MG CAP PO SCH (21:00)
[2018-07-24] VITALS (12 sets, daily range): BP systolic 107–131; BP diastolic 55–63; PULSE 77–95; RESP 16–20
[2018-07-24] MEDS: ALBUTEROL 0.083% (NEB) 2.5 MG/3 ML AMP HHN SCH ×3 (01:05→15:52)
[2018-07-24] MEDS: PANTOPRAZOLE 40 MG INJ IV SCH (05:30)
--- NOTE | 2018-07-24 08:57 | CONS ---
Date/Time of Note Date/Time of Note DATE: 07/24/18 TIME: 08:57 Assessment/Plan Assessment/Plan Hospital Course Right renal infarct: Embolic. 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 Other possibilities include cardioembolic from occult afib (none so far on tele), severe LV dysfunction (unknown EF), endocarditis (no fevers but mild leukocytosis). PAD: had left common iliac stent 2 yrs prior and has progressive claudication a gain but no rest pain. CT shows occlusion of the stents which coincides with his symptoms but no rest pain so doubt acute occlusion. HTN: uncontrolled on admission likely at least partially due to pain and possibly from renal infarct. Now controlled so far this am -f/u vascular surgery eval. ?Need for anticoagulation chronically. ?Risk for renal hemorrhage with anticoagulation -check echo -check blood cultures (did get azithromycin last night) -add ASA for now -increase to lipitor 40mg -continue current BP meds including nifedipine 30mg BID, metoprolol 25mg BID, hydralazine 25mg TID Result Diagram: 07/24/18 0525 07/24/18 0525 Results 24hrs Laboratory Tests Test 07/23/18 16:00 07/24/18 05:25 Urine Random Creatinine 255.25 Urine Protein/Creatinine Ratio 0.06 Urine Total Protein 17.0 H White Blood Count 17.5 #H Red Blood Count 4.57 L Hemoglobin 14.1 Hematocrit 41.1 L Mean Corpuscular Volume 89.9 Mean Corpuscular Hemoglobin 30.9 Mean Corpuscular Hemoglobin Concent 34.3 Red Cell Distribution Width 13.5 Platelet Count 186 Mean Platelet Volume 10.7 H Immature Granulocytes % 0.500 H Neutrophils % 83.0 H Lymphocytes % 9.0 L Monocytes % 7.2 Eosinophils % 0.0 Basophils % 0.3 Nucleated Red Blood Cells % 0.0 Immature Granulocytes # 0.080 H Neutrophils # 14.6 H Lymphocytes # 1.6 Monocytes # 1.3 H Eosinophils # 0.0 Basophils # 0.1 Nucleated Red Blood Cells # 0.0 Sodium Level 137 Potassium Level 4.1 Chloride Level 97 Carbon Dioxide Level 33 H Anion Gap 7 Blood Urea Nitrogen 21 H Creatinine 1.22 Est Glomerular Filtrat Rate mL/min 59 L Glucose Level 112 Calcium Level 9.0 Phosphorus Level 3.9 Magnesium Level 1.9 Consultation Date/Type/Reason Admit Date/Time Jul 22, 2018 at 17:42 Initial Consult Date 07/23/18 Type of Consult Cardiology Requesting Provider: GISEL ROSE MD Exam/Review of Systems Vital Signs Vitals Vital Signs Date Temp Pulse Resp B/P (MAP) Pulse Ox O2 O2 Flow FiO2 Time Delivery Rate 07/24/18 87 08:44 07/24/18 92 2.0 28 08:24 07/24/18 16 Nasal 08:24 Cannula 07/24/18 98.3 117/57 07:14 (77) Intake and Output 07/23/18 07/23/18 07/24/18 1414:59 22:59 06:59 IntakeIntake Total 420 ml 370 ml OutputOutput Total 700 ml 250 ml BalanceBalance -280 ml 120 ml Medications Medications Current Medications Azithromycin 250 ml @ 250 mls/hr Q24H IVPB Last administered on 07/23/18at 23:50; Admin Dose 250 MLS/HR; Start 07/22/18 at 23:00 Albuterol (Proventil 0.083% (Neb)) 2.5 mg Q8H RESP THERAPY HHN Last administered on 07/24/18at 08:21; Admin Dose 2.5 MG; Start 07/22/18 at 21:20 Ipratropium [place] (Atrovent 0.02% (Neb)) 0.5 mg DAILY RESP THERAPY HHN Last administered on 07/23/18at 08:28; Admin Dose 0.5 MG; Start 07/22/18 at 22:00 Ondansetron HCl (Zofran Inj) 4 mg DAILY IV Last administered on 07/23/18at 08:08; Admin Dose 4 MG; Start 07/22/18 at 23:00 Pantoprazole (Protonix Iv) 40 mg DAILY@0600 IV Last administered on 07/24/18at 05:30; Admin Dose 40 MG; Start 07/22/18 at 23:00 Nicotine (Nicoderm 14 Mg/ 24hr) 1 patch DAILY TRANSDERM Last administered on 07/23/18at 08:05; Admin Dose 1 PATCH; Start 07/22/18 at 23:00 Acetaminophen (Tylenol Tab) 500 mg Q6H PRN PO PAIN LEVEL 4-6; Start 07/22/18 at 21:00 Metoprolol Tartrate (Lopressor) 25 mg BID PO Last administered on 07/23/18 20:25; Admin Dose 25 MG; Start 07/22/18 at 23:30 Labetalol HCl (Labetalol) 20 mg Q1HWA PRN IV ELEVATED SYSTOLIC BP Last administered on 07/23/18 01:51; Admin Dose 20 MG; Start 07/23/18 at 01:00 Hydralazine HCl (Apresoline) 25 mg TID NGT Last administered on 07/23/18 20:25; Admin Dose 25 MG; Start 07/23/18 at 01:40 Morphine Sulfate (morphine) 3 mg Q3HWA PRN IV SEVERE PAIN LEVEL 7-10 Last administered on 07/23/18 14:14; Admin Dose 3 MG; Start 07/23/18 at 01:00 Tamsulosin HCl (Flomax) 0.4 mg HS PO Last administered on 07/23/18 20:25; Admin Dose 0.4 MG; Start 07/23/18 at 01:40 Clonidine HCl (Catapres-Tts 1 Patch) 1 patch Q7D TRANSDERM Last administered on 07/23/18 03:37; Admin Dose 1 PATCH; Start 07/23/18 at 03:00 Nitroglycerin (Nitroglycerin 0.1 Mg/Hr) 1 patch DAILY TRANSDERM Last administered on 07/23/18 10:54; Admin Dose 1 PATCH; Start 07/23/18 at 09:00 Nifedipine (Procardia Xl) 30 mg BID PO Last administered on 07/23/18 20:24; Admin Dose 30 MG; Start 07/23/18 at 09:00 Atorvastatin Calcium (Lipitor) 40 mg DAILY@2100 PO Last administered on 07/23/18 20:24; Admin Dose 40 MG; Start 07/23/18 at 21:00 Apixaban (Eliquis) 5 mg BID PO ; Start 07/24/18 at 09:00; Status YANELIS HALEY Jul 24, 2018 08:57
[2018-07-24] MEDS ORDERED: ASPIRIN 81 MG TAB PO SCH (09:00)
[2018-07-24] MEDS: ONDANSETRON 4 MG INJ IV SCH ×2 (09:00→09:09)
[2018-07-24] MEDS: NITROGLYCERIN 0.1 MG/HR PATCH TRANSDERM SCH (09:10)
[2018-07-24] MEDS: NIFEdipine (XL) 60 MG TAB PO SCH ×2 (09:11→20:09)
[2018-07-24] MEDS: APIXABAN 5 MG TABLET PO SCH ×2 (09:13→20:08)
[2018-07-24] MEDS: METOPROLOL 25 MG TAB PO SCH ×2 (09:13→20:09)
[2018-07-24] MEDS: NICOTINE (14 MG/24 HR) PATCH TRANSDERM SCH (09:14)
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
--- NOTE | 2018-07-24 09:31 | CONS ---
Date/Time of Note Date/Time of Note DATE: 07/24/18 TIME: 09:27 Assessment/Plan Assessment/Plan Hospital Course Right renal infarct: Embolic. Seen by vascular and likely cardioembolic as aorta thrombus is infrarenal. No cardiomyopathy and no obvious vegetation by TTE. No afib on tele but could have occult afib. Cultures still pending but no obvious infectious source or fevers. PAD: had left common iliac stent 2 yrs prior and has progressive claudication again but no rest pain. CT shows occlusion of the stents which coincides with his symptoms but no rest pain so doubt acute occlusion. HTN: uncontrolled on admission likely at least partially due to pain and possibly from renal infarct. Now controlled so far this am -stop ASA and start Eliquis 5mg BID -outpt event monitor to detect afib is appropriate -f/u blood cultures. If febrile or cultures positive, will need JANICE -lipitor 40mg -continue current BP meds including nifedipine 30mg BID, metoprolol 25mg BID, hydralazine 25mg TID -if cultures negative and other workup complete, ok for d/c from my perspective Result Diagram: 07/24/18 0525 07/24/18 0525 Results 24hrs Laboratory Tests Test 07/23/18 16:00 07/24/18 05:25 Urine Random Creatinine 255.25 Urine Protein/Creatinine Ratio 0.06 Urine Total Protein 17.0 H White Blood Count 17.5 #H Red Blood Count 4.57 L Hemoglobin 14.1 Hematocrit 41.1 L Mean Corpuscular Volume 89.9 Mean Corpuscular Hemoglobin 30.9 Mean Corpuscular Hemoglobin Concent 34.3 Red Cell Distribution Width 13.5 Platelet Count 186 Mean Platelet Volume 10.7 H Immature Granulocytes % 0.500 H Neutrophils % 83.0 H Lymphocytes % 9.0 L Monocytes % 7.2 Eosinophils % 0.0 Basophils % 0.3 Nucleated Red Blood Cells % 0.0 Immature Granulocytes # 0.080 H Neutrophils # 14.6 H Lymphocytes # 1.6 Monocytes # 1.3 H Eosinophils # 0.0 Basophils # 0.1 Nucleated Red Blood Cells # 0.0 Sodium Level 137 Potassium Level 4.1 Chloride Level 97 Carbon Dioxide Level 33 H Anion Gap 7 Blood Urea Nitrogen 21 H Creatinine 1.22 Est Glomerular Filtrat Rate mL/min 59 L Glucose Level 112 Calcium Level 9.0 Phosphorus Level 3.9 Magnesium Level 1.9 Consultation Date/Type/Reason Admit Date/Time Jul 22, 2018 at 17:42 Initial Consult Date 07/23/18 Type of Consult Cardiology Requesting Provider: GISEL ROSE MD 24 HR Interval Summary Free Text/Dictation No afib on tele. No events. Seen by multiple consultants Exam/Review of Systems Vital Signs Vitals Vital Signs Date Temp Pulse Resp B/P (MAP) Pulse Ox O2 O2 Flow FiO2 Time Delivery Rate 07/24/18 87 08:44 07/24/18 92 2.0 28 08:24 07/24/18 16 Nasal 08:24 Cannula 07/24/18 98.3 117/57 07:14 (77) Intake and Output 07/23/18 07/23/18 07/24/18 1515:00 23:00 07:00 IntakeIntake Total 420 ml 370 ml OutputOutput Total 700 ml 250 ml BalanceBalance -280 ml 120 ml Exam Constitutional: alert, oriented Psych: no complaints, nl mood/affect Head: normocephalic, atraumatic Neck: supple; No jvd Respiratory: clear to auscultation; No crackles/rales Cardiovascular: regular rate and rhythm; No edema, No systolic murmur Gastrointestinal: soft, non-tender Neurological: nl mental status, nl speech Medications Medications Current Medications Azithromycin 250 ml @ 250 mls/hr Q24H IVPB Last administered on 07/23/18at 23:50; Admin Dose 250 MLS/HR; Start 07/22/18 at 23:00 Albuterol (Proventil 0.083% (Neb)) 2.5 mg Q8H RESP THERAPY N Last administe red on 07/24/18at 08:21; Admin Dose 2.5 MG; Start 07/22/18 at 21:20 Ipratropium [place] (Atrovent 0.02% (Neb)) 0.5 mg DAILY RESP THERAPY HHN Last administered on 07/23/18at 08:28; Admin Dose 0.5 MG; Start 07/22/18 at 22:00 Ondansetron HCl (Zofran Inj) 4 mg DAILY IV Last administered on 07/23/18 08:08; Admin Dose 4 MG; Start 07/22/18 at 23:00 Pantoprazole (Protonix Iv) 40 mg DAILY@0600 IV Last administered on 07/24/18 05:30; Admin Dose 40 MG; Start 07/22/18 at 23:00 Nicotine (Nicoderm 14 Mg/ 24hr) 1 patch DAILY TRANSDERM Last administered on 07/24/18 09:14; Admin Dose 1 PATCH; Start 07/22/18 at 23:00 Acetaminophen (Tylenol Tab) 500 mg Q6H PRN PO PAIN LEVEL 4-6; Start 07/22/18 at 21:00 Metoprolol Tartrate (Lopressor) 25 mg BID PO Last administered on 07/24/18 09:13; Admin Dose 25 MG; Start 07/22/18 at 23:30 Labetalol HCl (Labetalol) 20 mg Q1HWA PRN IV ELEVATED SYSTOLIC BP Last administered on 07/23/18 01:51; Admin Dose 20 MG; Start 07/23/18 at 01:00 Hydralazine HCl (Apresoline) 25 mg TID NGT Last administered on 07/24/18 09:10; Admin Dose 25 MG; Start 07/23/18 at 01:40 Morphine Sulfate (morphine) 3 mg Q3HWA PRN IV SEVERE PAIN LEVEL 7-10 Last administered on 07/23/18 14:14; Admin Dose 3 MG; Start 07/23/18 at 01:00 Tamsulosin HCl (Flomax) 0.4 mg HS PO Last administered on 07/23/18 20:25; Admin Dose 0.4 MG; Start 07/23/18 at 01:40 Clonidine HCl (Catapres-Tts 1 Patch) 1 patch Q7D TRANSDERM Last administered on 07/23/18 03:37; Admin Dose 1 PATCH; Start 07/23/18 at 03:00 Nitroglycerin (Nitroglycerin 0.1 Mg/Hr) 1 patch DAILY TRANSDERM Last administered on 07/24/18 09:10; Admin Dose 1 PATCH; Start 07/23/18 at 09:00 Nifedipine (Procardia Xl) 30 mg BID PO Last administered on 07/24/18 09:11; Admin Dose 30 MG; Start 07/23/18 at 09:00 Atorvastatin Calcium (Lipitor) 40 mg DAILY@2100 PO Last administered on 07/23/18 20:24; Admin Dose 40 MG; Start 07/23/18 at 21:00 Apixaban (Eliquis) 5 mg BID PO Last administered on 07/24/18at 09:13; Admin Dose 5 MG; Start 07/24/18 at 09:00 YANELIS DE SOUZA Jul 24, 2018 09:31
--- NOTE | 2018-07-24 10:02 | CONS ---
Date/Time of Note Date/Time of Note DATE: 07/24/18 TIME: 10:01 Assessment/Plan Assessment/Plan Assessment/Plan 1. ARF prob sec to iv contrast, will check post void residual, BP has been stable 2. Rev with IM and cards re anticoagulation. 3. BP is controlled Result Diagram: 07/24/18 0525 07/24/18 0525 Results 24hrs Laboratory Tests Test 07/23/18 16:00 07/24/18 05:25 Urine Random Creatinine 255.25 Urine Protein/Creatinine Ratio 0.06 Urine Total Protein 17.0 H White Blood Count 17.5 #H Red Blood Count 4.57 L Hemoglobin 14.1 Hematocrit 41.1 L Mean Corpuscular Volume 89.9 Mean Corpuscular Hemoglobin 30.9 Mean Corpuscular Hemoglobin Concent 34.3 Red Cell Distribution Width 13.5 Platelet Count 186 Mean Platelet Volume 10.7 H Immature Granulocytes % 0.500 H Neutrophils % 83.0 H Lymphocytes % 9.0 L Monocytes % 7.2 Eosinophils % 0.0 Basophils % 0.3 Nucleated Red Blood Cells % 0.0 Immature Granulocytes # 0.080 H Neutrophils # 14.6 H Lymphocytes # 1.6 Monocytes # 1.3 H Eosinophils # 0.0 Basophils # 0.1 Nucleated Red Blood Cells # 0.0 Sodium Level 137 Potassium Level 4.1 Chloride Level 97 Carbon Dioxide Level 33 H Anion Gap 7 Blood Urea Nitrogen 21 H Creatinine 1.22 Est Glomerular Filtrat Rate mL/min 59 L Glucose Level 112 Calcium Level 9.0 Phosphorus Level 3.9 Magnesium Level 1.9 Consultation Date/Type/Reason Admit Date/Time Jul 22, 2018 at 17:42 Initial Consult Date 07/23/18 Requesting Provider: GISEL ROSE MD 24 HR Interval Summary Constitutional: other (comfortable without tachypnea) Exam/Review of Systems Vital Signs Vitals Vital Signs Date Temp Pulse Resp B/P (MAP) Pulse Ox O2 O2 Flow FiO2 Time Delivery Rate 07/24/18 87 08:44 07/24/18 92 2.0 28 08:24 07/24/18 16 Nasal 08:24 Cannula 07/24/18 98.3 117/57 07:14 (77) Intake and Output 07/23/18 07/23/18 07/24/18 1515:00 23:00 07:00 IntakeIntake Total 420 ml 370 ml OutputOutput Total 700 ml 250 ml BalanceBalance -280 ml 120 ml Exam Neck: No jvd Respiratory: clear to auscultation Cardiovascular: regular rate and rhythm Gastrointestinal: soft Extremities: No edema Medications Medications Current Medications Azithromycin 250 ml @ 250 mls/hr Q24H IVPB Last administered on 07/23/18 23:50; Admin Dose 250 MLS/HR; Start 07/22/18 at 23:00 Albuterol (Proventil 0.083% (Neb)) 2.5 mg Q8H RESP THERAPY HHN Last ad ministered on 07/24/18 08:21; Admin Dose 2.5 MG; Start 07/22/18 at 21:20 Ipratropium [place] (Atrovent 0.02% (Neb)) 0.5 mg DAILY RESP THERAPY HHN Last administered on 07/23/18 08:28; Admin Dose 0.5 MG; Start 07/22/18 at 22:00 Ondansetron HCl (Zofran Inj) 4 mg DAILY IV Last administered on 07/23/18 08:08; Admin Dose 4 MG; Start 07/22/18 at 23:00 Pantoprazole (Protonix Iv) 40 mg DAILY@0600 IV Last administered on 07/24/18 05:30; Admin Dose 40 MG; Start 07/22/18 at 23:00 Nicotine (Nicoderm 14 Mg/ 24hr) 1 patch DAILY TRANSDERM Last administered on 07/24/18 09:14; Admin Dose 1 PATCH; Start 07/22/18 at 23:00 Acetaminophen (Tylenol Tab) 500 mg Q6H PRN PO PAIN LEVEL 4-6; Start 07/22/18 at 21:00 Metoprolol Tartrate (Lopressor) 25 mg BID PO Last administered on 07/24/18 09:13; Admin Dose 25 MG; Start 07/22/18 at 23:30 Labetalol HCl (Labetalol) 20 mg Q1HWA PRN IV ELEVATED SYSTOLIC BP Last administ ered on 07/23/18 01:51; Admin Dose 20 MG; Start 07/23/18 at 01:00 Hydralazine HCl (Apresoline) 25 mg TID NGT Last administered on 07/24/18 09:10; Admin Dose 25 MG; Start 07/23/18 at 01:40 Morphine Sulfate (morphine) 3 mg Q3HWA PRN IV SEVERE PAIN LEVEL 7-10 Last administered on 07/23/18 14:14; Admin Dose 3 MG; Start 07/23/18 at 01:00 Tamsulosin HCl (Flomax) 0.4 mg HS PO Last administered on 07/23/18 20:25; Admin Dose 0.4 MG; Start 07/23/18 at 01:40 Clonidine HCl (Catapres-Tts 1 Patch) 1 patch Q7D TRANSDERM Last administered on 07/23/18 03:37; Admin Dose 1 PATCH; Start 07/23/18 at 03:00 Nitroglycerin (Nitroglycerin 0.1 Mg/Hr) 1 patch DAILY TRANSDERM Last administered on 07/24/18 09:10; Admin Dose 1 PATCH; Start 07/23/18 at 09:00 Nifedipine (Procardia Xl) 30 mg BID PO Last administered on 07/24/18 09:11; Admin Dose 30 MG; Start 07/23/18 at 09:00 Atorvastatin Calcium (Lipitor) 40 mg DAILY@2100 PO Last administered on 07/23/18 20:24; Admin Dose 40 MG; Start 07/23/18 at 21:00 Apixaban (Eliquis) 5 mg BID PO Last administered on 07/24/18 09:13; Admin Dose 5 MG; Start 07/24/18 at 09:00 TOBIAS LUNA MD Jul 24, 2018 10:02
--- NOTE | 2018-07-24 11:20 | PN ---
DATE: 07/24/2018 SUBJECTIVE: Patient has no new complaints. The abdominal pain seems to be improving. OBJECTIVE: GENERAL: The patient is a well-developed, well-nourished male in no acute distress. VITAL SIGNS: Temperature 98.3, pulse 80 per minute and regular, respirations 16, blood pressure is 1 17/57, pulse oximetry 92% on 2 liters by nasal cannula. SKIN: No ecchymosis, no petechiae or rashes. HEENT: Normocephalic. No evidence of trauma. Pupils equal, round, react to light and accommodation . Sclerae nonicteric. Oral mucosa is moist without lesions. NECK: Supple. No jugular venous distention or thyroid enlargement. CHEST: Clear to auscultation and percussion. No rhonchi, wheezes, rales or rubs. NODES: No palpable lymphadenopathy in any lymph node bearing area. ABDOMEN: Soft with some tenderness on the right side, but there is no obvious organomegaly. EXTREMITIES: No clubbing, edema or cyanosis. No palpable cords or Homans sign. NEUROLOGIC: Normal. LABORATORY DATA: White count 17,500 with absolute neutrophil count of 14,600, hemoglobin 14.1, hemat ocrit 41.1 and platelet count 186,000. Sodium 137, potassium 4.1, creatinine 1.22, BUN 21. ASSESSMENT: 1. Right-sided renal infarct. 2. Peripheral vascular disease. DISCUSSION: A workup for thrombophilia has been started but feel that is more likely this patient's vascular issues are on the base of peripheral vascular disease. It is interesting to note that on admission, the patient did have an elevated white blood cell count as well as an elevated hemoglobin and hematocrit, although platelet count was normal. These findings may be related to the acute inflammatory response to the recent renal infarct but will evaluate the patient for possible myeloproliferative neoplasm which may also be associated with thromboembolic vidya nts. The patient has had a CT scan of the abdomen and pelvis. This did not show any splenic enlargement o r other abnormalities. Will obtain a JAK2 mutation as well as a BCR-ABL gene rearrangement study. Dictated By: DENILSON WHITE MD SR/NTS Conf#: [id number] DID#: [id number] CC: SINGH DUDLEY MD; GISEL ROSE MD;*End*
[2018-07-24] MEDS: IPRATROPIUM (NEB) 0.5 MG/2.5 ML AMP HHN SCH (11:45)
[2018-07-24] MEDS: SOD CHLORIDE 0.9% 1,000 ML IV SCH (12:15)
--- NOTE | 2018-07-24 13:42 | PN ---
Date/Time of Note Date/Time of Note DATE: 07/24/18 TIME: 13:40 Assessment/Plan Lines/Catheters IV Catheter Type (from Nrs): Saline Lock Weber in Place (from Nrs): No Assessment/Plan Assessment/Plan Right inferior pole renal infarct - embolic, most likely from the heart. I would recommend continuing the [employer]. No further intervention warranted at this time. WBC elevation is likely secondary to the infarcted kidney. Left iliac and femoral stents - occluded. Arterial duplex shows no flow in the left leg. He is surprisingly asymptomatic - he has calf claudication but no rest pain and no wounds No need for intervention at present although he is high risk for ischemic rest pain or ulceration / gangrene especially if he continues to smoke I gave him my card and we will contact him to followup with me in the office in 2 weeks after he is discharged Subjective 24 Hr Interval Summary No new c/o. R sided abdominal pain is mostly resolved. No pain in the feet. Started on Eliquis. Exam/Review of Systems Vital Signs Vitals Vital Signs Date Temp Pulse Resp B/P (MAP) Pulse Ox O2 O2 Flow FiO2 Time Delivery Rate 07/24/18 77 12:15 07/24/18 16 94 Nasal 2.0 11:46 Cannula 07/24/18 98.0 107/55 11:16 (72) 07/24/18 28 08:24 Intake and Output 07/23/18 07/23/18 07/24/18 1515:00 23:00 07:00 IntakeIntake Total 420 ml 370 ml OutputOutput Total 700 ml 250 ml BalanceBalance -280 ml 120 ml Exam Free Text/Dictation Abdomen soft, nontender Feet are cool but normal sensation and motor function, no ulcers or discoloration. Results Result Diagram: 07/24/18 0525 07/24/18 0525 MATTHEW JONES MD Jul 24, 2018 13:42
[2018-07-24] MEDS: ATORVASTATIN 40 MG TAB PO SCH (20:08)
[2018-07-24] MEDS: TAMSULOSIN (SR) 0.4 MG CAP PO SCH (20:08)
[2018-07-24] MEDS: morphine 4 MG/ML VIAL IV PRN (20:08)
[2018-07-24] MEDS: AZITHROMYCIN 500MG/NS (PMX) 250 ML IVPB SCH (23:38)
[2018-07-25] VITALS (14 sets, daily range): BP systolic 103–143; BP diastolic 58–67; PULSE 76–96; RESP 17–18
[2018-07-25] MEDS: ALBUTEROL 0.083% (NEB) 2.5 MG/3 ML AMP HHN SCH ×3 (00:23→16:00)
[2018-07-25] MEDS: PANTOPRAZOLE 40 MG INJ IV SCH (05:29)
[2018-07-25] MEDS: SOD CHLORIDE 0.9% 1,000 ML IV SCH (06:36)
--- NOTE | 2018-07-25 08:53 | CONS ---
Date/Time of Note Date/Time of Note DATE: 07/25/18 TIME: 08:51 Consult Date/Type/Reason Admit Date/Time Jul 22, 2018 at 17:42 Initial Consult Date 07/23/18 Requesting Provider: GISEL ROSE MD Subjective No overnight events. Feels well. Objective Vital Signs Date Temp Pulse Resp B/P (MAP) Pulse Ox O2 O2 Flow FiO2 Time Delivery Rate 07/25/18 Nasal 2.0 08:17 Cannula 07/25/18 92 08:00 07/25/18 99.9 18 123/59 93 07:18 (80) 07/25/18 28 01:12 Intake and Output 07/24/18 07/24/18 07/25/18 1515:00 23:00 07:00 IntakeIntake Total 1450 ml OutputOutput Total 180 ml 80 ml 400 ml BalanceBalance -180 ml -80 ml 1050 ml Exam NAD/A&Ox4 OP clear JVD not elevated RRR no m/g/r CTA B Soft, NT, ND, + BS warm extremities Results/Medications Result Diagram: 07/25/1822 07/25/1822 Results 24 hrs Laboratory Tests Test 07/24/18 15:40 07/25/18 05:22 Urine Random Sodium 14 L White Blood Count 16.7 H Red Blood Count 4.25 L Hemoglobin 13.0 L Hematocrit 38.6 L Mean Corpuscular Volume 90.8 Mean Corpuscular Hemoglobin 30.6 Mean Corpuscular Hemoglobin Concent 33.7 Red Cell Distribution Width 13.6 Platelet Count 178 Mean Platelet Volume 10.9 H Immature Granulocytes % 0.500 H Neutrophils % 82.1 H Lymphocytes % 10.5 L Monocytes % 6.5 Eosinophils % 0.1 Basophils % 0.3 Nucleated Red Blood Cells % 0.0 Immature Granulocytes # 0.080 H Neutrophils # 13.7 H Lymphocytes # 1.8 Monocytes # 1.1 H Eosinophils # 0.0 Basophils # 0.1 Nucleated Red Blood Cells # 0.0 Sodium Level 137 Potassium Level 3.8 Chloride Level 97 Carbon Dioxide Level 31 Anion Gap 9 Blood Urea Nitrogen 20 Creatinine 0.99 Est Glomerular Filtrat Rate mL/min > 60 Glucose Level 93 Calcium Level 8.5 Phosphorus Level 2.9 Magnesium Level 2.0 Medications Current Medications Azithromycin 250 ml @ 250 mls/hr Q24H IVPB Last administered on 07/24/18 23:38; Admin Dose 250 MLS/HR; Start 07/22/18 at 23:00 Albuterol (Proventil 0.083% (Neb)) 2.5 mg Q8H RESP THERAPY HHN Last administered on 07/25/18 00:23; Admin Dose 2.5 MG; Start 07/22/18 at 21:20 Ipratropium [place] (Atrovent 0.02% (Neb)) 0.5 mg DAILY RESP THERAPY HHN Last administered on 07/24/18 11:45; Admin Dose 0.5 MG; Start 07/22/18 at 22:00 Ondansetron HCl (Zofran Inj) 4 mg DAILY IV Last administered on 07/23/18 08:08; Admin Dose 4 MG; Start 07/22/18 at 23:00 Pantoprazole (Protonix Iv) 40 mg DAILY@0600 IV Last administered on 07/25/18 05:29; Admin Dose 40 MG; Start 07/22/18 at 23:00 Nicotine (Nicoderm 14 Mg/ 24hr) 1 patch DAILY TRANSDERM Last administered on 07/24/18 09:14; Admin Dose 1 PATCH; Start 07/22/18 at 23:00 Acetaminophen (Tylenol Tab) 500 mg Q6H PRN PO PAIN LEVEL 4-6; Start 07/22/18 at 21:00 Metoprolol Tartrate (Lopressor) 25 mg BID PO Last administered on 07/24/18 20:09; Admin Dose 25 MG; Start 07/22/18 at 23:30 Labetalol HCl (Labetalol) 20 mg Q1HWA PRN IV ELEVATED SYSTOLIC BP Last administered on 07/23/18 01:51; Admin Dose 20 MG; Start 07/23/18 at 01:00 Hydralazine HCl (Apresoline) 25 mg TID NGT Last administered on 07/24/18 20:09; Admin Dose 25 MG; Start 07/23/18 at 01:40 Morphine Sulfate (morphine) 3 mg Q3HWA PRN IV SEVERE PAIN LEVEL 7-10 Last administered on 07/24/18 20:08; Admin Dose 3 MG; Start 07/23/18 at 01:00 Tamsulosin HCl (Flomax) 0.4 mg HS PO Last administered on 07/24/18 20:08; Admin Dose 0.4 MG; Start 07/23/18 at 01:40 Clonidine HCl (Catapres-Tts 1 Patch) 1 patch Q7D TRANSDERM Last administered on 07/23/18 03:37; Admin Dose 1 PATCH; Start 07/23/18 at 03:00 Nitroglycerin (Nitroglycerin 0.1 Mg/Hr) 1 patch DAILY TRANSDERM Last administered on 07/24/18 09:10; Admin Dose 1 PATCH; Start 07/23/18 at 09:00 Nifedipine (Procardia Xl) 30 mg BID PO Last administered on 07/24/18 20:09; Admin Dose 30 MG; Start 07/23/18 at 09:00 Atorvastatin Calcium (Lipitor) 40 mg DAILY@2100 PO Last administered on 07/24/18 20:08; Admin Dose 40 MG; Start 07/23/18 at 21:00 Apixaban (Eliquis) 5 mg BID PO Last administered on 07/24/18 20:08; Admin Dose 5 MG; Start 07/24/18 at 09:00 Sodium Chloride 1,000 ml @ 50 mls/hr Q20H IV Last administered on 07/25/18 06:36; Admin Dose 50 MLS/HR; Start 07/24/18 at 10:30 Assessment/Plan Chief Complaint/Hosp Course 68yo male with h/o PAD found to have renal infarct. 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 Infarct likely due to severe PAD. Pt on Eliquis but I would recommend restarting anti-platelet therapy as well with Aspirin. Start Aspirin 81mg/day MPN w/u pending but unlikely. Luis Segovia MD Hematology LUIS SEGOVIA Jul 25, 2018 08:53
[2018-07-25] MEDS: NIFEdipine (XL) 60 MG TAB PO SCH ×2 (08:55→20:24)
[2018-07-25] MEDS: ONDANSETRON 4 MG INJ IV SCH (08:55)
[2018-07-25] MEDS: APIXABAN 5 MG TABLET PO SCH ×2 (08:55→20:23)
[2018-07-25] MEDS: METOPROLOL 25 MG TAB PO SCH ×2 (08:56→20:24)
[2018-07-25] MEDS: NICOTINE (14 MG/24 HR) PATCH TRANSDERM SCH (08:57)
[2018-07-25] MEDS: NITROGLYCERIN 0.1 MG/HR PATCH TRANSDERM SCH (09:01)
[2018-07-25] MEDS: IPRATROPIUM (NEB) 0.5 MG/2.5 ML AMP HHN SCH (10:06)
--- NOTE | 2018-07-25 11:52 | CONS ---
Date/Time of Note Date/Time of Note DATE: 07/25/18 TIME: 11:50 Assessment/Plan Assessment/Plan Assessment/Plan 1. ARF has resolved 2. Vol contraction corrected (low urinary sodium noted) 3. Renal infarct now being anticoagulated 4. WBC still inc, ? source (infarct related) 5. Will gladly see on request Result Diagram: 07/25/18 0522 07/25/18 0522 Results 24hrs Laboratory Tests Test 07/24/18 15:40 07/25/18 05:22 Urine Random Sodium 14 L White Blood Count 16.7 H Red Blood Count 4.25 L Hemoglobin 13.0 L Hematocrit 38.6 L Mean Corpuscular Volume 90.8 Mean Corpuscular Hemoglobin 30.6 Mean Corpuscular Hemoglobin Concent 33.7 Red Cell Distribution Width 13.6 Platelet Count 178 Mean Platelet Volume 10.9 H Immature Granulocytes % 0.500 H Neutrophils % 82.1 H Lymphocytes % 10.5 L Monocytes % 6.5 Eosinophils % 0.1 Basophils % 0.3 Nucleated Red Blood Cells % 0.0 Immature Granulocytes # 0.080 H Neutrophils # 13.7 H Lymphocytes # 1.8 Monocytes # 1.1 H Eosinophils # 0.0 Basophils # 0.1 Nucleated Red Blood Cells # 0.0 Sodium Level 137 Potassium Level 3.8 Chloride Level 97 Carbon Dioxide Level 31 Anion Gap 9 Blood Urea Nitrogen 20 Creatinine 0.99 Est Glomerular Filtrat Rate mL/min > 60 Glucose Level 93 Calcium Level 8.5 Phosphorus Level 2.9 Magnesium Level 2.0 Consultation Date/Type/Reason Admit Date/Time Jul 22, 2018 at 17:42 Initial Consult Date 07/23/18 Requesting Provider: GISEL ROSE MD 24 HR Interval Summary Constitutional: other (comfortable) Exam/Review of Systems Vital Signs Vitals Vital Signs Date Temp Pulse Resp B/P (MAP) Pulse Ox O2 O2 Flow FiO2 Time Delivery Rate 07/25/18 98.4 78 18 103/59 90 11:40 (74) 07/25/18 2.0 10:12 07/25/18 Nasal 08:17 Cannula 07/25/18 28 01:12 Intake and Output 07/24/18 07/24/18 07/25/18 1515:00 23:00 07:00 IntakeIntake Total 1450 ml OutputOutput Total 180 ml 80 ml 400 ml BalanceBalance -180 ml -80 ml 1050 ml Exam Neck: No jvd Respiratory: clear to auscultation Cardiovascular: regular rate and rhythm Gastrointestinal: soft, other (? right upper quad tend) Extremities: No edema Medications Medications Current Medications Azithromycin 250 ml @ 250 mls/hr Q24H IVPB Last administered on 07/24/18 23:38; Admin Dose 250 MLS/HR; Start 07/22/18 at 23:00 Albuterol (Proventil 0.083% (Neb)) 2.5 mg Q8H RESP THERAPY HHN Last administered on 07/25/18 10:06; Admin Dose 2.5 MG; Start 07/22/18 at 21:20 Ipratropium [place] (Atrovent 0.02% (Neb)) 0.5 mg DAILY RESP THERAPY HHN Last administered on 07/25/18 10:06; Admin Dose 0.5 MG; Start 07/22/18 at 22:00 Ondansetron HCl (Zofran Inj) 4 mg DAILY IV Last administered on 07/25/18 08:55; Admin Dose 4 MG; Start 07/22/18 at 23:00 Pantoprazole (Protonix Iv) 40 mg DAILY@0600 IV Last administered on 07/25/18 05:29; Admin Dose 40 MG; Start 07/22/18 at 23:00 Nicotine (Nicoderm 14 Mg/ 24hr) 1 patch DAILY TRANSDERM Last administered on 07/25/18 08:57; Admin Dose 1 PATCH; Start 07/22/18 at 23:00 Acetaminophen (Tylenol Tab) 500 mg Q6H PRN PO PAIN LEVEL 4-6; Start 07/22/18 at 21:00 Metoprolol Tartrate (Lopressor) 25 mg BID PO Last administered on 07/25/18 08:56; Admin Dose 25 MG; Start 07/22/18 at 23:30 Labetalol HCl (Labetalol) 20 mg Q1HWA PRN IV ELEVATED SYSTOLIC BP Last administered on 07/23/18 01:51; Admin Dose 20 MG; Start 07/23/18 at 01:00 Hydralazine HCl (Apresoline) 25 mg TID NGT Last administered on 07/25/18 08:56; Admin Dose 25 MG; Start 07/23/18 at 01:40 Morphine Sulfate (morphine) 3 mg Q3HWA PRN IV SEVERE PAIN LEVEL 7-10 Last administered on 07/24/18 20:08; Admin Dose 3 MG; Start 07/23/18 at 01:00 Tamsulosin HCl (Flomax) 0.4 mg HS PO Last administered on 07/24/18 20:08; Admin Dose 0.4 MG; Start 07/23/18 at 01:40 Clonidine HCl (Catapres-Tts 1 Patch) 1 patch Q7D TRANSDERM Last administered on 07/23/18 03:37; Admin Dose 1 PATCH; Start 07/23/18 at 03:00 Nitroglycerin (Nitroglycerin 0.1 Mg/Hr) 1 patch DAILY TRANSDERM Last administered on 07/25/18 09:01; Admin Dose 1 PATCH; Start 07/23/18 at 09:00 Nifedipine (Procardia Xl) 30 mg BID PO Last administered on 07/25/18 08:55; Admin Dose 30 MG; Start 07/23/18 at 09:00 Atorvastatin Calcium (Lipitor) 40 mg DAILY@2100 PO Last administered on 07/24/18 20:08; Admin Dose 40 MG; Start 07/23/18 at 21:00 Apixaban (Eliquis) 5 mg BID PO Last administered on 07/25/18 08:55; Admin Dose 5 MG; Start 07/24/18 at 09:00 Sodium Chloride 1,000 ml @ 50 mls/hr Q20H IV Last administered on 07/25/18 06:36; Admin Dose 50 MLS/HR; Start 07/24/18 at 10:30 Aspirin (Aspirin) 81 mg DAILY GTB ; Start 07/25/18 at 09:00 TOBIAS LUNA MD Jul 25, 2018 11:52
[2018-07-25] MEDS: ASPIRIN 81 MG TAB GTB SCH (13:03)
--- NOTE | 2018-07-25 15:29 | CONS ---
Date/Time of Note Date/Time of Note DATE: 07/25/18 TIME: 15:27 Consult Date/Type/Reason Admit Date/Time Jul 22, 2018 at 17:42 Initial Consult Date 07/23/18 Type of Consultation: Pulm Requesting Provider: GISEL ROSE MD Subjective No shortness of breath. Comfortable. Objective Vital Signs Date Temp Pulse Resp B/P (MAP) Pulse Ox O2 O2 Flow FiO2 Time Delivery Rate 07/25/18 82 109/59 13:04 (76) 07/25/18 98.4 18 90 11:40 07/25/18 2.0 10:12 07/25/18 Nasal 08:17 Cannula 07/25/18 28 01:12 Intake and Output 07/24/18 07/24/18 07/25/18 1515:00 23:00 07:00 IntakeIntake Total 1450 ml OutputOutput Total 180 ml 80 ml 400 ml BalanceBalance -180 ml -80 ml 1050 ml Exam HEENT: Neck supple; no JVD; no LAD CVS: RRR, S1 and S2 CHEST: Clear ABD: Soft, NT, + BS EXT: No c/c/e Results/Medications Result Diagram: 07/25/1852107/25/18 0522 Results 24 hrs Laboratory Tests Test 07/24/18 15:40 07/25/18 05:22 Urine Random Sodium 14 L White Blood Count 16.7 H Red Blood Count 4.25 L Hemoglobin 13.0 L Hematocrit 38.6 L Mean Corpuscular Volume 90.8 Mean Corpuscular Hemoglobin 30.6 Mean Corpuscular Hemoglobin Concent 33.7 Red Cell Distribution Width 13.6 Platelet Count 178 Mean Platelet Volume 10.9 H Immature Granulocytes % 0.500 H Neutrophils % 82.1 H Lymphocytes % 10.5 L Monocytes % 6.5 Eosinophils % 0.1 Basophils % 0.3 Nucleated Red Blood Cells % 0.0 Immature Granulocytes # 0.080 H Neutrophils # 13.7 H Lymphocytes # 1.8 Monocytes # 1.1 H Eosinophils # 0.0 Basophils # 0.1 Nucleated Red Blood Cells # 0.0 Sodium Level 137 Potassium Level 3.8 Chloride Level 97 Carbon Dioxide Level 31 Anion Gap 9 Blood Urea Nitrogen 20 Creatinine 0.99 Est Glomerular Filtrat Rate mL/min > 60 Glucose Level 93 Calcium Level 8.5 Phosphorus Level 2.9 Magnesium Level 2.0 Medications Current Medications Azithromycin 250 ml @ 250 mls/hr Q24H IVPB Last administered on 07/24/18 23:38; Admin Dose 250 MLS/HR; Start 07/22/18 at 23:00 Albuterol (Proventil 0.083% (Neb)) 2.5 mg Q8H RESP THERAPY HHN Last administered on 07/25/18 10:06; Admin Dose 2.5 MG; Start 07/22/18 at 21:20 Ipratropium [place] (Atrovent 0.02% (Neb)) 0.5 mg DAILY RESP THERAPY HHN Last administered on 07/25/18 10:06; Admin Dose 0.5 MG; Start 07/22/18 at 22:00 Ondansetron HCl (Zofran Inj) 4 mg DAILY IV Last administered on 07/25/18 08:55; Admin Dose 4 MG; Start 07/22/18 at 23:00 Pantoprazole (Protonix Iv) 40 mg DAILY@0600 IV Last administered on 07/25/18 05:29; Admin Dose 40 MG; Start 07/22/18 at 23:00 Nicotine (Nicoderm 14 Mg/ 24hr) 1 patch DAILY TRANSDERM Last administered on 07/25/18 08:57; Admin Dose 1 PATCH; Start 07/22/18 at 23:00 Acetaminophen (Tylenol Tab) 500 mg Q6H PRN PO PAIN LEVEL 4-6; Start 07/22/18 at 21:00 Metoprolol Tartrate (Lopressor) 25 mg BID PO Last administered on 07/25/18 08:56; Admin Dose 25 MG; Start 07/22/18 at 23:30 Labetalol HCl (Labetalol) 20 mg Q1HWA PRN IV ELEVATED SYSTOLIC BP Last administered on 07/23/18 01:51; Admin Dose 20 MG; Start 07/23/18 at 01:00 Hydralazine HCl (Apresoline) 25 mg TID NGT Last administered on 07/25/18 08:56; Admin Dose 25 MG; Start 07/23/18 at 01:40 Morphine Sulfate (morphine) 3 mg Q3HWA PRN IV SEVERE PAIN LEVEL 7-10 Last adm inistered on 07/24/18 20:08; Admin Dose 3 MG; Start 07/23/18 at 01:00 Tamsulosin HCl (Flomax) 0.4 mg HS PO Last administered on 07/24/18 20:08; Admin Dose 0.4 MG; Start 07/23/18 at 01:40 Clonidine HCl (Catapres-Tts 1 Patch) 1 patch Q7D TRANSDERM Last administered on 07/23/18 03:37; Admin Dose 1 PATCH; Start 07/23/18 at 03:00 Nitroglycerin (Nitroglycerin 0.1 Mg/Hr) 1 patch DAILY TRANSDERM Last admi nistered on 07/25/18 09:01; Admin Dose 1 PATCH; Start 07/23/18 at 09:00 Nifedipine (Procardia Xl) 30 mg BID PO Last administered on 07/25/18 08:55; Admin Dose 30 MG; Start 07/23/18 at 09:00 Atorvastatin Calcium (Lipitor) 40 mg DAILY@2100 PO Last administered on 07/24/18 20:08; Admin Dose 40 MG; Start 07/23/18 at 21:00 Apixaban (Eliquis) 5 mg BID PO Last administered on 07/25/18 08:55; Admin Dose 5 MG; Start 07/24/18 at 09:00 Sodium Chloride 1,000 ml @ 20 mls/hr Q24H IV Last administered on 07/25/18 06:36; Admin Dose 50 MLS/HR; Start 07/24/18 at 10:30 Aspirin (Aspirin) 81 mg DAILY GTB Last administered on 07/25/18 13:03; Admin Dose 81 MG; Start 07/25/18 at 09:00 Assessment/Plan Additional Assessment/Plan IMP: 1. Right renal infarct 2. s/p ARF 3. PAD 4. Emphysema RECS: 1. No respiratory issues at the present time MELY LEHMAN MD Jul 25, 2018 15:29
[2018-07-25] MEDS: TAMSULOSIN (SR) 0.4 MG CAP PO SCH (20:23)
[2018-07-25] MEDS: ATORVASTATIN 40 MG TAB PO SCH (20:27)
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
[2018-07-25] MEDS: AZITHROMYCIN 500MG/NS (PMX) 250 ML IVPB SCH (22:34)
[2018-07-26] VITALS (12 sets, daily range): BP systolic 96–127; BP diastolic 51–71; PULSE 73–93; RESP 17–19
[2018-07-26] MEDS: IPRATROPIUM (NEB) 0.5 MG/2.5 ML AMP HHN SCH ×2 (00:45→08:06)
[2018-07-26] MEDS: ALBUTEROL 0.083% (NEB) 2.5 MG/3 ML AMP HHN SCH ×3 (00:45→16:22)
[2018-07-26] MEDS: PANTOPRAZOLE 40 MG INJ IV SCH (05:23)
[2018-07-26] MEDS: SOD CHLORIDE 0.9% 1,000 ML IV SCH (06:30)
[2018-07-26] MEDS: METOPROLOL 25 MG TAB PO SCH ×2 (09:29→20:23)
[2018-07-26] MEDS: APIXABAN 5 MG TABLET PO SCH ×2 (09:29→20:23)
[2018-07-26] MEDS: NICOTINE (14 MG/24 HR) PATCH TRANSDERM SCH (09:29)
[2018-07-26] MEDS: ONDANSETRON 4 MG INJ IV SCH (09:29)
[2018-07-26] MEDS: ASPIRIN 81 MG TAB GTB SCH (09:29)
[2018-07-26] MEDS: NITROGLYCERIN 0.1 MG/HR PATCH TRANSDERM SCH (09:29)
[2018-07-26] MEDS: NIFEdipine (XL) 60 MG TAB PO SCH ×2 (09:30→20:23)
--- NOTE | 2018-07-26 13:15 | CONS ---
Date/Time of Note Date/Time of Note DATE: 07/26/18 TIME: 13:14 Consult Date/Type/Reason Admit Date/Time Jul 22, 2018 at 17:42 Initial Consult Date 07/23/18 Type of Consultation: Pulm Requesting Provider: GISEL ROSE MD Subjective No events. Overall better. Objective Vital Signs Date Temp Pulse Resp B/P (MAP) Pulse Ox O2 O2 Flow FiO2 Time Delivery Rate 07/26/18 98.0 89 19 124/64 91 11:16 (84) 07/26/18 Nasal 2.0 21 08:08 Cannula Intake and Output 07/25/18 07/25/18 07/26/18 1515:00 23:00 07:00 IntakeIntake Total 600 ml 650 ml OutputOutput Total 300 ml 500 ml BalanceBalance 300 ml 150 ml Exam HEENT: Neck supple; no JVD; no LAD CVS: RRR, S1 and S2 CHEST: Clear though diminished B/L ABD: Soft, NT, + BS EXT: No c/c/e Results/Medications Result Diagram: 07/25/1852107/25/18521 Medications Current Medications Azithromycin 250 ml @ 250 mls/hr Q24H IVPB Last administered on 07/25/18at 22:34; Admin Dose 250 MLS/HR; Start 07/22/18 at 23:00 Albuterol (Proventil 0.083% (Neb)) 2.5 mg Q8H RESP THERAPY HHN Last administered on 07/26/18at 08:06; Admin Dose 2.5 MG; Start 07/22/18 at 21:20 Ipratropium [place] (Atrovent 0.02% (Neb)) 0.5 mg DAILY RESP THERAPY HHN Last administered on 07/26/18at 08:06; Admin Dose 0.5 MG; Start 07/22/18 at 22:00 Ondansetron HCl (Zofran Inj) 4 mg DAILY IV Last administered on 07/26/18at 09:29; Admin Dose 4 MG; Start 07/22/18 at 23:00 Pantoprazole (Protonix Iv) 40 mg DAILY@0600 IV Last administered on 07/26/18at 05:23; Admin Dose 40 MG; Start 07/22/18 at 23:00 Nicotine (Nicoderm 14 Mg/ 24hr) 1 patch DAILY TRANSDERM Last administered on 07/26/18 09:29; Admin Dose 1 PATCH; Start 07/22/18 at 23:00 Acetaminophen (Tylenol Tab) 500 mg Q6H PRN PO PAIN LEVEL 4-6; Start 07/22/18 at 21:00 Metoprolol Tartrate (Lopressor) 25 mg BID PO Last administered on 07/26/18 09:29; Admin Dose 25 MG; Start 07/22/18 at 23:30 Labetalol HCl (Labetalol) 20 mg Q1HWA PRN IV ELEVATED SYSTOLIC BP Last administered on 07/23/18 01:51; Admin Dose 20 MG; Start 07/23/18 at 01:00 Hydralazine HCl (Apresoline) 25 mg TID NGT Last administered on 07/26/18 09:30; Admin Dose 25 MG; Start 07/23/18 at 01:40 Morphine Sulfate (morphine) 3 mg Q3HWA PRN IV SEVERE PAIN LEVEL 7-10 Last admi nistered on 07/24/18 20:08; Admin Dose 3 MG; Start 07/23/18 at 01:00 Tamsulosin HCl (Flomax) 0.4 mg HS PO Last administered on 07/25/18 20:23; Admin Dose 0.4 MG; Start 07/23/18 at 01:40 Clonidine HCl (Catapres-Tts 1 Patch) 1 patch Q7D TRANSDERM Last administered on 07/23/18 03:37; Admin Dose 1 PATCH; Start 07/23/18 at 03:00 Nitroglycerin (Nitroglycerin 0.1 Mg/Hr) 1 patch DAILY TRANSDERM Last admin istered on 07/26/18 09:29; Admin Dose 1 PATCH; Start 07/23/18 at 09:00 Nifedipine (Procardia Xl) 30 mg BID PO Last administered on 07/26/18 09:30; Admin Dose 30 MG; Start 07/23/18 at 09:00 Atorvastatin Calcium (Lipitor) 40 mg DAILY@2100 PO Last administered on 07/25/18 20:27; Admin Dose 40 MG; Start 07/23/18 at 21:00 Apixaban (Eliquis) 5 mg BID PO Last administered on 07/26/18 09:29; Admin Dose 5 MG; Start 07/24/18 at 09:00 Sodium Chloride 1,000 ml @ 20 mls/hr Q24H IV Last administered on 07/25/18at 06:36; Admin Dose 50 MLS/HR; Start 07/24/18 at 10:30 Aspirin (Aspirin) 81 mg DAILY GTB Last administered on 07/26/18at 09:29; Admin Dose 81 MG; Start 07/25/18 at 09:00 Assessment/Plan Additional Assessment/Plan IMP: 1. Right renal infarct 2. s/p ARF 3. PAD 4. Emphysema RECS: 1. OOB to chair 2. PT/OT 3. Optimize nutrition MELY LEHMAN MD Jul 26, 2018 13:15
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
[2018-07-26] MEDS: NICOTINE (7 MG/24 HR) PATCH TRANSDERM SCH (17:32)
[2018-07-26] MEDS: TAMSULOSIN (SR) 0.4 MG CAP PO SCH (20:21)
[2018-07-26] MEDS: ATORVASTATIN 40 MG TAB PO SCH (20:22)
[2018-07-26] MEDS ORDERED: ALBUTEROL/IPRATROPIUM (NEB) 3 ML AMP HHN STA (23:04)
[2018-07-26] MEDS: AZITHROMYCIN 500MG/NS (PMX) 250 ML IVPB SCH (23:12)
[2018-07-27] VITALS (11 sets, daily range): BP systolic 99–156; BP diastolic 55–69; PULSE 72–89; RESP 17–19
[2018-07-27] MEDS: ALBUTEROL/IPRATROPIUM (NEB) 3 ML AMP HHN SCH ×4 (02:00→19:42)
[2018-07-27] MEDS: PANTOPRAZOLE 40 MG INJ IV SCH (05:51)
[2018-07-27] MEDS: SOD CHLORIDE 0.9% 1,000 ML IV SCH (05:51)
[2018-07-27] MEDS: ASPIRIN 81 MG TAB GTB SCH (08:41)
[2018-07-27] MEDS: APIXABAN 5 MG TABLET PO SCH ×2 (08:41→20:38)
[2018-07-27] MEDS: NITROGLYCERIN 0.1 MG/HR PATCH TRANSDERM SCH (08:42)
[2018-07-27] MEDS: ONDANSETRON 4 MG INJ IV SCH (08:42)
[2018-07-27] MEDS: NICOTINE (7 MG/24 HR) PATCH TRANSDERM SCH (08:42)
[2018-07-27] MEDS: METOPROLOL 25 MG TAB PO SCH ×2 (08:49→20:37)
[2018-07-27] MEDS: NIFEdipine (XL) 60 MG TAB PO SCH ×2 (08:50→20:36)
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
--- NOTE | 2018-07-27 10:42 | CONS ---
Date/Time of Note Date/Time of Note DATE: 07/27/18 TIME: 10:40 Assessment/Plan Assessment/Plan Assessment/Plan Assessment and recommendations; 1. 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 Patient clinically stable with preserved renal function. 2. Underlying emphysema, hypoxemia on room air. Patient fairly is symptomatic. 3. History of BPH and hypertension. 4. Mild persistent leukocytosis of unknown etiology. Obtain ABG on 2 L nasal cannula. Continue current supportive care. Further recommendations once ABG is obtained. Result Diagram: 07/25/1852107/25/18521 Consultation Date/Type/Reason Admit Date/Time Jul 22, 2018 at 17:42 Initial Consult Date 07/23/18 Type of Consult Pulmonary History of presenting illness; Patient is a pleasant 68-year-old male who came into the hospital with complaints of right flank pain. Upon evaluation further workup was done which revealed right renal infarct. Patient is feeling much better now and denies any further abdominal pain, he also denies any shortness of breath. Patient did have an episode earlier associated with abdominal pain with interval resolution. He denies any wheezing, chest pain, sputum production, fever or chills. By the time I saw him, patient was laying comfortably in bed. Past medical history; 1. COPD. 2. BPH. 3. Hypertension. 4. Possibly peripheral vascular disease. Medications; reviewed. Allergies; none. Social history; patient quit smoking several years ago. Occupational history; patient has a miscellaneous occupations. Family history; positive for diabetes and hypertension. Review of systems; denies any headache, seizures, sinus symptoms. Denies any chest pain, wheezing, shortness of breath. Any coughing or sputum production. Any further abdominal pain. Denies any nausea vomiting. Denies any edema, orthopnea. Any weight loss. Denies any urinary symptoms. Any melena or hematochezia. General exam; elderly male, awake alert, currently in no distress. Requesting Provider: GISEL ROSE MD 24 HR Interval Summary Free Text/Dictation Patient's condition is fairly stable. Complains of occasional shortness of breath. Patient did have episodes of hypoxemia on room air. Denies any wheezing, chest pain, coughing, sputum production. Denies any abdominal pain, nausea vomiting. General exam; elderly male, awake alert, laying comfortably in bed. Currently in no distress. Exam/Review of Systems Vital Signs Vitals Vital Signs Date Temp Pulse Resp B/P (MAP) Pulse Ox O2 O2 Flow FiO2 Time Delivery Rate 07/27/18 84 20 94 Nasal 2.0 09:08 Cannula 07/27/18 99.4 105/56 07:34 (72) 07/26/18 21 16:24 Intake and Output 07/26/18 07/26/18 07/27/18 1515:00 23:00 07:00 IntakeIntake Total 480 ml 650 ml OutputOutput Total 300 ml 300 ml BalanceBalance 180 ml 350 ml Exam H HEENT exam; supple neck, no JVD. No lymphadenopathy. Midline trachea. No thyromegaly. Patient is edentulous and wears dentures. Chest exam; diminished but clear breath sounds. S1-S2 audible, no murmurs. Regular rhythm. Abdomen exam; soft, no organomegaly. Nontender. Bowel sounds audible. Extremity exam; no peripheral edema or clubbing. 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 Medications Medications Current Medications Azithromycin 250 ml @ 250 mls/hr Q24H IVPB Last administered on 07/26/18 23:12; Admin Dose 250 MLS/HR; Start 07/22/18 at 23:00 Ondansetron HCl (Zofran Inj) 4 mg DAILY IV Last administered on 07/27/18 08:42; Admin Dose 4 MG; Start 07/22/18 at 23:00 Pantoprazole (Protonix Iv) 40 mg DAILY@0600 IV Last administered on 07/27/18 05:51; Admin Dose 40 MG; Start 07/22/18 at 23:00 Acetaminophen (Tylenol Tab) 500 mg Q6H PRN PO PAIN LEVEL 4-6; Start 07/22/18 at 21:00 Metoprolol Tartrate (Lopressor) 25 mg BID PO Last administered on 07/26/18 20:23; Admin Dose 25 MG; Start 07/22/18 at 23:30 Labetalol HCl (Labetalol) 20 mg Q1HWA PRN IV ELEVATED SYSTOLIC BP Last a dministered on 07/23/18 01:51; Admin Dose 20 MG; Start 07/23/18 at 01:00 Hydralazine HCl (Apresoline) 25 mg TID NGT Last administered on 07/26/18 20:22; Admin Dose 25 MG; Start 07/23/18 at 01:40 Morphine Sulfate (morphine) 3 mg Q3HWA PRN IV SEVERE PAIN LEVEL 7-10 Last administered on 07/24/18 20:08; Admin Dose 3 MG; Start 07/23/18 at 01:00 Tamsulosin HCl (Flomax) 0.4 mg HS PO Last administered on 07/26/18 20:21; Admin Dose 0.4 MG; Start 07/23/18 at 01:40 Clonidine HCl (Catapres-Tts 1 Patch) 1 patch Q7D TRANSDERM Last administered on 07/23/18 03:37; Admin Dose 1 PATCH; Start 07/23/18 at 03:00 Nitroglycerin (Nitroglycerin 0.1 Mg/Hr) 1 patch DAILY TRANSDERM Last administered on 07/27/18 08:42; Admin Dose 1 PATCH; Start 07/23/18 at 09:00 Nifedipine (Procardia Xl) 30 mg BID PO Last administered on 07/26/18 20:23; Admin Dose 30 MG; Start 07/23/18 at 09:00 Atorvastatin Calcium (Lipitor) 40 mg DAILY@2100 PO Last administered on 07/26/18 20:22; Admin Dose 40 MG; Start 07/23/18 at 21:00 Apixaban (Eliquis) 5 mg BID PO Last administered on 07/27/18 08:41; Admin Dose 5 MG; Start 07/24/18 at 09:00 Sodium Chloride 1,000 ml @ 20 mls/hr Q24H IV Last administered on 07/27/18 05:51; Admin Dose 20 MLS/HR; Start 07/24/18 at 10:30 Aspirin (Aspirin) 81 mg DAILY GTB Last administered on 07/27/18 08:41; Admin Dose 81 MG; Start 07/25/18 at 09:00 Nicotine (Nicoderm 7 Mg/ 24 Hr) 1 patch DAILY TRANSDERM Last administered on 07/27/18 08:42; Admin Dose 1 PATCH; Start 07/26/18 at 17:00 Albuterol/ Ipratropium (Duoneb) 3 ml Q6H RESP THERAPY HHN Last administered on 1/7/19at 08:58; Admin Dose 3 ML; Start 07/27/18 at 02:00 JODY COLÓN Jul 27, 2018 10:42
--- NOTE | 2018-07-27 19:42 | PN ---
DATE: 07/27/2018 SUBJECTIVE: The patient remains relatively comfortable. There are no new complaints. He did have a n episode of desaturation last night. MEDICATIONS: The patient is now on: 1. Apixaban 5 mg twice a day. 2. Aspirin. OBJECTIVE: GENERAL: Well-developed, well-nourished male in no acute distress. VITAL SIGNS: Now, temperature 98.1 orally, pulse 84 per minute and regular, respirations 20, blood p ressure 134/69, pulse oximetry 95% on room air. SKIN: No ecchymosis, no petechiae or rashes. HEENT: Normocephalic. No evidence of trauma. Pupils are equal, round, reactive to light and accomm odation. Sclerae are nonicteric. Oral mucosa is moist without lesions. NECK: Supple. No jugular venous distention or thyroid enlargement. CHEST: Decreased breath sounds, but no rhonchi, wheezes, rales or rubs. HEART: Regular sinus rhythm. No S3, S4 or murmurs. ABDOMEN: Soft, no masses, no ascites. EXTREMITIES: No clubbing, edema or cyanosis. No palpable cords or Homans sign. NEUROLOGIC: Normal. LABORATORY DATA: Blood gases earlier today at 10:38 demonstrate a pH 7.4, pCO2 of 58, pO2 of 60.4, b icarbonate 34.5, oxygen saturation 90.9. ASSESSMENT: 1. Renal infarct. 2. Chronic obstructive pulmonary disease. 3. Peripheral vascular disease. 4. Hypertension. As noted, the patient did have an episode of shortness of breath earlier today. Blood gasses suggest a chronic CO2 retention. I feel it is unlikely that the patient's pain was related to any type of thromboembolic event as the patient is on both direct acting oral anticoagulation as well as antiplatelet agents. Workup for thrombophilia is pending as is the JAK2 and BCR-ABL studies which were requested because o f the patient's persistent leukocytosis. We will repeat a CBC in the morning. Dictated By: DENILSON WHITE MD SR/NTS Conf#: [id number] DID#: [id number] CC: SINGH DUDLEY MD; GISEL ROSE MD;*EndCC*
[2018-07-27] MEDS: TAMSULOSIN (SR) 0.4 MG CAP PO SCH (20:38)
[2018-07-27] MEDS: ATORVASTATIN 40 MG TAB PO SCH (20:40)
[2018-07-27] MEDS: AZITHROMYCIN 500MG/NS (PMX) 250 ML IVPB SCH (23:23)
[2018-07-28] VITALS (11 sets, daily range): BP systolic 104–136; BP diastolic 57–78; PULSE 75–91; RESP 18–22
[2018-07-28] MEDS: ALBUTEROL/IPRATROPIUM (NEB) 3 ML AMP HHN SCH ×4 (01:20→19:56)
[2018-07-28] MEDS: SOD CHLORIDE 0.9% 1,000 ML IV SCH (06:30)
[2018-07-28] MEDS: PANTOPRAZOLE 40 MG INJ IV SCH (06:36)
[2018-07-28] MEDS: NITROGLYCERIN 0.1 MG/HR PATCH TRANSDERM SCH (08:41)
[2018-07-28] MEDS: NIFEdipine (XL) 60 MG TAB PO SCH ×2 (08:41→21:10)
[2018-07-28] MEDS: NICOTINE (7 MG/24 HR) PATCH TRANSDERM SCH (08:41)
[2018-07-28] MEDS: ONDANSETRON 4 MG INJ IV SCH (08:41)
[2018-07-28] MEDS: APIXABAN 5 MG TABLET PO SCH ×2 (08:42→21:10)
[2018-07-28] MEDS: ASPIRIN 81 MG TAB GTB SCH (08:42)
[2018-07-28] MEDS: METOPROLOL 25 MG TAB PO SCH ×2 (08:43→21:09)
--- NOTE | 2018-07-28 11:04 | CONS ---
Date/Time of Note Date/Time of Note DATE: 07/28/18 TIME: 11:02 Assessment/Plan Assessment/Plan Assessment/Plan Assessment and recommendations; 1. Patient admitted with abdominal pain due to right renal infarct, which has been attributed to thromboembolic phenomenon. Patient maintaining stable renal function. With resolution of abdominal pain. 2. Underlying severe emphysema. 3. Likely chronic hypoxemia. Continue current supportive care. Consider discharge home oxygen. Patient will need to have a full PFT done as an outpatient. Result Diagram: 07/28/1852107/25/18521 Results 24hrs Laboratory Tests Test 07/27/18 23:15 07/28/18 04:12 07/28/18 05:22 Blood Gas Specimen Blood arterial Blood arterial Source Arterial Blood Date 07/26/2018 11:05:56 PM 07/28/2018 4:25:40 AM Drawn Arterial Blood pH 7.417 7.435 (Temp corrected) Arterial Blood pCO2 48.7 H 46.9 H (Temp correct) Arterial Blood pO2 40.8 *L 62.1 L (Temp corrected) Arterial Blood HCO3 30.7 H 30.8 H Arterial Blood Base 5.1 H 5.6 H Excess Arterial Blood 77.6 L 92.0 L Oxygen Saturation Beto Test ACCEPTAB ACCEPTAB Arterial Blood Gas Right Radial Right Radial Puncture Site Arterial 0.7 0.4 Blood Carboxyhemoglobin Arterial Blood 0.2 0.3 Methemoglobin Blood Gas A-a O2 50.6 H 241.6 H Differential Oxyhemoglobin Percent 76.9 L 91.4 L Blood Gas Temperature 37.0 37.0 Blood Gas Actual 20 Respiration Rate Blood Gas Modality ROOM AIR MASK - VENTI FiO2 21.0 50.0 Blood Gas Critical Ferny CLAYTON Value Read Back Blood Gas Notified SBryant DURAN Whom Blood Gas Notified 07/26/2018 11:22:01 PM 07/28/2018 4:36:29 AM Time White Blood Count 9.5 # Red Blood Count 3.88 L Hemoglobin 11.7 L Hematocrit 35.2 L Mean Corpuscular Volume 90.7 Mean Corpuscular 30.2 Hemoglobin Mean Corpuscular 33.2 Hemoglobin Concent Red Cell Distribution 13.2 Width Platelet Count 227 # Mean Platelet Volume 10.4 Immature Granulocytes % 0.300 Neutrophils % 71.4 Lymphocytes % 16.3 Monocytes % 9.3 Eosinophils % 2.2 Basophils % 0.5 Nucleated Red Blood 0.0 Cells % Immature Granulocytes # 0.030 Neutrophils # 6.8 Lymphocytes # 1.6 Monocytes # 0.9 Eosinophils # 0.2 Basophils # 0.1 Nucleated Red Blood 0.0 Cells # Consultation Date/Type/Reason Admit Date/Time Jul 22, 2018 at 17:42 Initial Consult Date 07/23/18 Type of Consult Pulmonary History of presenting illness; Patient is a pleasant 68-year-old male who came into the hospital with complaints of right flank pain. Upon evaluation further workup was done which revealed right renal infarct. Patient is feeling much better now and denies any further abdominal pain, he also denies any shortness of breath. Patient did have an episode earlier associated with abdominal pain with interval resolution. He denies any wheezing, chest pain, sputum production, fever or chills. By the time I saw him, patient was laying comfortably in bed. Past medical history; 1. COPD. 2. BPH. 3. Hypertension. 4. Possibly peripheral vascular disease. Medications; reviewed. Allergies; none. Social history; patient quit smoking several years ago. Occupational history; patient has a miscellaneous occupations. Family history; positive for diabetes and hypertension. Review of systems; denies any headache, seizures, sinus symptoms. Denies any chest pain, wheezing, shortness of breath. Any coughing or sputum production. Any further abdominal pain. Denies any nausea vomiting. Denies any edema, orthopnea. Any weight loss. Denies any urinary symptoms. Any melena or hematochezia. General exam; elderly male, awake alert, currently in no distress. Requesting Provider: GISEL ROSE MD 24 HR Interval Summary Free Text/Dictation Patient's condition is stable. Denies any chest pain, shortness of breath, coughing or wheezing. Denies any abdominal pain. General exam; elderly male, awake and alert. Currently in no distress. Exam/Review of Systems Vital Signs Vitals Vital Signs Date Temp Pulse Resp B/P (MAP) Pulse Ox O2 O2 Flow FiO2 Time Delivery Rate 07/28/18 91 09:10 07/28/18 Venti Mask 15.0 07:54 07/28/18 18 97 50 07:42 07/28/18 98.0 119/57 07:38 (77) Intake and Output 07/27/18 07/27/18 07/28/18 1515:00 23:00 07:00 IntakeIntake Total 720 ml 300 ml OutputOutput Total 700 ml BalanceBalance 720 ml -400 ml Exam HEENT exam; supple neck, no JVD. No lymphadenopathy. Midline trachea. No thyromegaly. Patient has fair dentition. No neck masses. Chest exam; diminished but clear breath sounds. S1-S2 audible, no murmurs. Regular rhythm. Abdomen exam; soft, no organomegaly. Nontender. Bowel sounds audible. Extremity exam; no peripheral edema or clubbing. 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 Medications Medications Current Medications Azithromycin 250 ml @ 250 mls/hr Q24H IVPB Last administered on 07/27/18 23:23; Admin Dose 250 MLS/HR; Start 07/22/18 at 23:00 Ondansetron HCl (Zofran Inj) 4 mg DAILY IV Last administered on 07/28/18 08:41; Admin Dose 4 MG; Start 07/22/18 at 23:00 Pantoprazole (Protonix Iv) 40 mg DAILY@0600 IV Last administered on 07/28/18 06:36; Admin Dose 40 MG; Start 07/22/18 at 23:00 Acetaminophen (Tylenol Tab) 500 mg Q6H PRN PO PAIN LEVEL 4-6; Start 07/22/18 at 21:00 Metoprolol Tartrate (Lopressor) 25 mg BID PO Last administered on 07/28/18 08:43; Admin Dose 25 MG; Start 07/22/18 at 23:30 Labetalol HCl (Labetalol) 20 mg Q1HWA PRN IV ELEVATED SYSTOLIC BP Last administered on 07/23/18 01:51; Admin Dose 20 MG; Start 07/23/18 at 01:00 Hydralazine HCl (Apresoline) 25 mg TID NGT Last administered on 07/28/18 08:42; Admin Dose 25 MG; Start 07/23/18 at 01:40 Morphine Sulfate (morphine) 3 mg Q3HWA PRN IV SEVERE PAIN LEVEL 7-10 Last administered on 07/24/18 20:08; Admin Dose 3 MG; Start 07/23/18 at 01:00 Tamsulosin HCl (Flomax) 0.4 mg HS PO Last administered on 07/27/18 20:38; Admin Dose 0.4 MG; Start 07/23/18 at 01:40 Clonidine HCl (Catapres-Tts 1 Patch) 1 patch Q7D TRANSDERM Last administered on 07/23/18 03:37; Admin Dose 1 PATCH; Start 07/23/18 at 03:00 Nitroglycerin (Nitroglycerin 0.1 Mg/Hr) 1 patch DAILY TRANSDERM Last administered on 07/28/18 08:41; Admin Dose 1 PATCH; Start 07/23/18 at 09:00 Nifedipine (Procardia Xl) 30 mg BID PO Last administered on 07/27/18 20:36; Admin Dose 30 MG; Start 07/23/18 at 09:00 Atorvastatin Calcium (Lipitor) 40 mg DAILY@2100 PO Last administered on 07/27/18 20:40; Admin Dose 40 MG; Start 07/23/18 at 21:00 Apixaban (Eliquis) 5 mg BID PO Last administered on 07/28/18 08:42; Admin Dose 5 MG; Start 07/24/18 at 09:00 Sodium Chloride 1,000 ml @ 20 mls/hr Q24H IV Last administered on 07/27/18 05:51; Admin Dose 20 MLS/HR; Start 07/24/18 at 10:30 Aspirin (Aspirin) 81 mg DAILY GTB Last administered on 07/28/18 08:42; Admin Dose 81 MG; Start 07/25/18 at 09:00 Nicotine (Nicoderm 7 Mg/ 24 Hr) 1 patch DAILY TRANSDERM Last administered on 07/28/18 08:41; Admin Dose 1 PATCH; Start 07/26/18 at 17:00 Albuterol/ Ipratropium (Duoneb) 3 ml Q6H RESP THERAPY HHN Last administered on 07/28/18 07:41; Admin Dose 3 ML; Start 07/27/18 at 02:00 JODY COLÓN Jul 28, 2018 11:04
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
[2018-07-28] MEDS: TAMSULOSIN (SR) 0.4 MG CAP PO SCH (21:08)
[2018-07-28] MEDS: ATORVASTATIN 40 MG TAB PO SCH (21:08)
[2018-07-29] VITALS: BP 127/65; PULSE 74; PULSE 84; RESP 21
[2018-07-29] MEDS: ALBUTEROL/IPRATROPIUM (NEB) 3 ML AMP HHN SCH ×2 (01:11→08:02)
[2018-07-29 04:00] VITALS: BP 128/66; PULSE 77; PULSE 83; RESP 20
[2018-07-29] MEDS: PANTOPRAZOLE 40 MG INJ IV SCH (05:35)
[2018-07-29] MEDS: SOD CHLORIDE 0.9% 1,000 ML IV SCH (05:54)
[2018-07-29 07:19] VITALS: BP 119/60; PULSE 79; RESP 18
[2018-07-29 08:34] VITALS: PULSE 81
[2018-07-29] MEDS: NITROGLYCERIN 0.1 MG/HR PATCH TRANSDERM SCH (08:37)
[2018-07-29] MEDS: NICOTINE (7 MG/24 HR) PATCH TRANSDERM SCH (08:37)
--- NOTE | 2018-07-29 08:37 | PN ---
DATE: 07/29/2018 SUBJECTIVE: The patient remains stable at this time. He does not actually complain of shortness of breath nor any abdominal pain. VITAL SIGNS: Temperature 98.5 orally, pulse 79 per minute and regular, respirations 18, blood pressu re 119/60, pulse oximetry 99% on 6 liters of oxygen by nasal cannula. Physical examination is unchanged. WBC 9500 with absolute neutrophil count 6800, hemoglobin 11.7, hematocrit 35.2 and platelet count 227 ,000. BCR/ABL gene rearrangement studies are negative. ASSESSMENT: 1. Right-sided renal infarct. 2. Peripheral vascular disease. 3. Chronic obstructive pulmonary disease. This patient remains on anticoagulation with both apixaban and an antiplatelet agent, i.e., aspirin. Evaluation for "thrombophilia" is still pending. The patient's white count is now normal. A BCR-ABL is negative and therefore leukocytosis cannot be described to chronic myelogenous leukemia. Still awaiting JAK2 mutation, but this is likely to be ne gative. Dictated By: DENILSON WHITE MD SR/NTS Conf#: [id number] DID#: [id number] CC: SINGH DUDLEY MD; GISEL ROSE MD;*End*
[2018-07-29] MEDS: ASPIRIN 81 MG TAB GTB SCH (08:38)
[2018-07-29] MEDS: APIXABAN 5 MG TABLET PO SCH (08:38)
[2018-07-29] MEDS: ONDANSETRON 4 MG INJ IV SCH (08:38)
[2018-07-29] MEDS: METOPROLOL 25 MG TAB PO SCH (08:39)
[2018-07-29] MEDS: NIFEdipine (XL) 60 MG TAB PO SCH (08:39)
[2018-07-29 11:18] VITALS: BP 98/56; PULSE 72; RESP 20
[2018-07-29 12:11] VITALS: PULSE 75
[2018-07-29] MEDS ORDERED: TYL500 PO (13:08)
[2018-07-29] MEDS ORDERED: [UNRECOGNIZED DRUG - CODE] TRANSDERM (13:08)
[2018-07-29] MEDS ORDERED: CLON1PAT TRANSDERM (13:08)
[2018-07-29] MEDS ORDERED: METO-448 PO (13:08)
[2018-07-29] MEDS ORDERED: ASPI-831 GTB (13:08)
[2018-07-29] MEDS ORDERED: ATOR40TA68 PO (13:08)
[2018-07-29] MEDS ORDERED: IPRA3AMP29 HHN (13:08)
[2018-07-29] MEDS ORDERED: HYDR-3671 NGT (13:08)
[2018-07-29] MEDS ORDERED: TAMS-14 PO (13:08)
[2018-07-29] MEDS ORDERED: NICO-544 TRANSDERM (13:08)
[2018-07-29] MEDS ORDERED: PANT40VI7 IV (13:08)
--- NOTE | 2018-07-29 13:10 | PDOCDIS ---
Discharge Instructions CONDITION [id number] Patient Condition: [id number] Guarded HOME CARE INSTRUCTIONS: [id number] Diet Instructions: [id number] Reduced Sodium ACTIVITY: Aphyn4Rh Activity Restrictions: [id number] Slowly Increase Activity [id number] Bathing Restrictions: [id number] Shower FOLLOW UP/APPOINTMENTS Follow-up Plan Vascular surgeon JOSEPH- 3-4 days in 7 days in 10 days in 10 days in 7 days in7-8 days. SCHOOL/WORK RELEASE May return to School/Work with: With Restrictions (no.) GISEL ROSE MD Jul 29, 2018 13:08
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
== END 2018-07-29 14:45 | disposition home health service (06) | DRG 699 ==
LOC: E/R 14:40 → 6WM 17:42 → CANRESERV 18:16 → EDBEDREQSVC 19:14 → 6WM 07-25 19:11
PROVIDERS: ADMIT Family Medicine; ATTEND Family Medicine
DX: N28.0 Ischemia and infarction of kidney (principal); J44.1 Chronic obstructive pulmonary disease with (acute) exacerbation; N17.8 Other acute kidney failure; I73.9 Peripheral vascular disease, unspecified; I10 Essential (primary) hypertension; Z72.0 Tobacco use; I70.0 Atherosclerosis of aorta; N40.0 Benign prostatic hyperplasia without lower urinary tract symptoms; J43.9 Emphysema, unspecified; Z91.14 Patient's other noncompliance with medication regimen; I70.211 Atherosclerosis of native arteries of extremities with intermittent claudication, right leg; Z95.820 Peripheral vascular angioplasty status with implants and grafts; N14.1 Nephropathy induced by other drugs, medicaments and biological substances; T50.8X5A Adverse effect of diagnostic agents, initial encounter
CPT/HCPCS: 36415; 36600; 71045; 74177; 76705; 80048; 80053; 81001; 81003; 81240; 81270; 82378; 82570; 82803; 83615; 83690; 83735; 83890; 84100; 84153; 84154; 84155; 84165; 84300; 84443; 84484; 85025; 85300; 85302; 85305; 85610; 85613; 85730; 86147; 87040; 93005; 93306; 93922; 94640; 94664; 96374; 96375; C9113; J0456; J2270; J2405; J7030; Q9967